=== PATIENT | female | born 1985 | race Caucasian/White ===

== ENCOUNTER 2021-05-24 16:08 | Emergency (ER) | payer BC, SELFPAY ==
--- NOTE | ~2021-05-24 | US_ITS ---
EXAMINATION: US RETROPERITONEAL LIMITED (RENAL ONLY) CLINICAL INFORMATION: Left flank pain. Dysuria. UTI/pyelonephritis. COMPARISON: Ultrasound of abdomen June 24, 2016 TECHNIQUE: Grayscale ultrasound and color Doppler exam was used to examine the kidneys FINDINGS: RIGHT KIDNEY: 10.6 x 4.8 x 5.3 cm (SAG x AP x TRV). The kidney is normal in size, contour, and echogenicity. Renal cortical thickness is normal. No calculi or focal parenchymal lesions. No hydronephrosis. LEFT KIDNEY: 10.1 x 5.8 x 5.7 cm (SAG x AP x TRV). The kidney is normal in size, contour, and echogenicity. Renal cortical thickness is normal. No calculi or focal parenchymal lesions. No hydronephrosis. US/US renal BI IMPRESSION: Normal ultrasound of kidneys..
[2021-05-24 17:08] VITALS: BP 141/92; PULSE 81; RESP 16; TEMP 36.6; O2SAT 97; BMI 23.1
--- NOTE | 2021-05-24 17:08 | ED.GENADULT ---
HPI - General Adult General Chief complaint: Urogenital-Female Stated complaint: ?Kidney infection Time Seen by Provider: 05/24/21 17:07 Source: patient Mode of arrival: ambulatory Limitations: no limitations History of Present Illness HPI narrative: 35 y/o female with history of recurrent UTIs, history of pyelonephritis x3 requiring IV antibiotics who presents to the ER wtih ongoing urinary symptoms after she completed 1 week of Macrobid for a E. coli UTI. Abx were prescribed by her PCP. Given her symptoms of dysuria, urinary frequency and left flank pain her PCP told her to come to the ER for blood work and a kidney ultrasound. She had a fever 2 days ago, none today. NO N/V/D. complaint: UTI symptoms Onset (ago): day(s) (8) Location: back, abdomen and left Radiation: back Severity: moderate Severity scale (1-10): 5 Quality: aching Pain Consistency: constant Relieving factors: none Exacerbating factors: movement Associated symptoms: denies other symptoms Treatments prior to arrival: none Related Data Previous Rx's Medication Instructions Recorded cefuroxime axetil 250 mg PO BID 7 Days #14 tab 05/24/21 fluconazole [Diflucan] 150 mg PO DAILY #1 tab 05/24/21 phenazopyridine [Pyridium] 100 mg PO Q8H PRN #5 tab 05/24/21 Allergies Allergy/AdvReac Type Severity Reaction Status Date / Time ciprofloxacin [CIPROFLOXACIN] Allergy Unknown HIVES/THROAT Verified 05/24/21 17:11 CLOSES Review of Systems Review of Systems: Constitutional: No Fever, No Chills ENT/Mouth: No sore throat, No Rhinorrhea, No Swallowing Difficulty Cardiovascular: No Chest Pain, No SOB Respiratory: No Cough, No Sputum Gastrointestinal: No Nausea, No Vomiting, No Diarrhea, No abdominal Pain Genitourinary: + Dysuria, + Urinary Frequency, No Hematuria Musculoskeletal: No joint pain, No Myalgias Skin: No Skin Lesions, No rash Neuro: No Weakness, No Numbness, No Dizziness, No Headache Heme/Lymph: No Lymphadenopathy PMFSH Past Medical History Attestation statement: The following information was validated with the patient. Social History Social History Advance Directives: No Advance Directives Information Provided: Yes Patient : No Physical Exam Vital Signs: Vital Signs: Last Vital Signs Temp 97.8 F 05/24/21 17:08 Pulse 81 05/24/21 17:08 Resp 16 05/24/21 17:08 BP 141/92 H 05/24/21 17:08 Pulse Ox 97 05/24/21 17:08 Body Mass Index 23.1 Appearance: Alert. Oriented X3. No acute distress. Eyes: Pupils equal, round and reactive to light. ENT: Pharynx normal. Neck: Normal inspection. Neck supple. CVS: Normal heart rate and rhythm. Pulses normal. Respiratory: No respiratory distress. Breath sounds normal. Abdomen: Soft with suprapubic tenderness, mild CVA tenderness on the left. No rebound or guarding. Normal BS x4 Skin: Skin warm and dry. Normal skin color. Normal skin turgor. No rashes. Extremities: No lower extremity edema. Neuro: Oriented X 3. No motor deficit. No sensory deficit. Course Course Course Narrative: 35 y/o female with history of frequent UTIs and multiple episodes of pyelonephritis requiring IV antibiotics and admission x3 who presents with left flank pain, dysuria, and urinary frequnecy for 1+ week. She was dx with UTI and given Macrobid x1 week which she completed. Symptoms persist. Fever 2 days ago. No fever here. No N/V/D. PCP sent her in for blood work and kidney ultrasound. Will repeat UA, lab workup & get Renal U/S Reevaluation(s) Reevaluation #1: Renal U/S normal. No leukocytosis, normal renal function. UA is normal. She would like to continue a course of additional antibiotics until she can be reseen by her PCP. We disucssed referral to urology for ongoing urinary symptoms and frequent infections, she agrees. Will give course of ceftin and pyridium and refer to Urology. Stable for d/c home. Medical Decision Making Lab Data Result diagrams: 05/24/21 18:14 05/24/21 18:14 Labs: Lab Results 05/24/21 05/24/21 05/24/21 Range/Units 17:39 18:14 18:14 WBC 6.3 (4.8-10.8) X10*3/uL RBC 3.87 L (4.20-5.50) X10*6/uL Hgb 13.1 (12.0-16.0) g/dl Hct 39.4 (37-47) % MCV 101.8 H (80-98) fL MCH 33.9 H (27.0-33.0) pg MCHC 33.2 (31.0-35.0) g/dl RDW 12.6 (11.0-16.0) % Plt Count 272 (160-400) X10*3/uL MPV 9.4 (9.4-12.3) fL Immature Gran % (Auto) 0.2 (0.0-0.4) % Neut % (Auto) 44.2 L (45-73) % Lymph % (Auto) 45.3 H (20-40) % [place] % (Auto) 6.3 (2-11) % Eos % (Auto) 3.2 (0-4) % Baso % (Auto) 0.8 (0-2) % Lymph # (Auto) 2.9 (1.2-4.9) X10*3/uL [place] # (Auto) 0.4 (0.1-1.2) X10*3/uL Eos # (Auto) 0.2 (0.0-0.4) X10*3/uL Baso # (Auto) 0.1 (0.0-0.2) X10*3/uL Abs Immat Gran (auto) 0.01 (0.00-0.03) X10*3/uL Absolute Neuts (auto) 2.8 (2.0-8.3) X10*3/uL Absolute Nucleated RBC 0.000 (0.0-0.012) X10*3/uL Nucleated RBC % (auto) 0.0 (0.0-0.2) /100WBC Sodium 140 (135-145) mmol/L Potassium 3.7 (3.3-5.1) mmol/L Chloride 106 (96-108) mmol/L Carbon Dioxide 27 (22-29) mmol/L Anion Gap 11 L (12-20) BUN 5 L (9-16) mg/dL Creatinine 0.72 (0.5-1.4) mg/dL Estim Creat Clear Calc 104.0 Estimated GFR > 60 Random Glucose 88 (60-115) mg/dL Calcium 9.0 (8.4-10.2) mg/dL Magnesium (1.6-2.6) mg/dL Urine Color YELLOW Urine Appearance CLEAR Urine pH 8.0 (5.0-8.0) Ur Specific [place] 1.010 (1.005-1.025) Urine Protein NEG (NEG-TRACE) MG/DL Urine Glucose (UA) NEG (NEG) MG/DL Urine Ketones NEG (NEG) MG/DL Urine Blood NEG (NEG) Urine Nitrite NEG (NEG) Ur Leukocyte Esterase NEG (NEG) 05/24/21 Range/Units 18:14 WBC (4.8-10.8) X10*3/uL RBC (4.20-5.50) X10*6/uL Hgb (12.0-16.0) g/dl Hct (37-47) % MCV (80-98) fL MCH (27.0-33.0) pg MCHC (31.0-35.0) g/dl RDW (11.0-16.0) % Plt Count (160-400) X10*3/uL MPV (9.4-12.3) fL Immature Gran % (Auto) (0.0-0.4) % Neut % (Auto) (45-73) % Lymph % (Auto) (20-40) % [place] % (Auto) (2-11) % Eos % (Auto) (0-4) % Baso % (Auto) (0-2) % Lymph # (Auto) (1.2-4.9) X10*3/uL [place] # (Auto) (0.1-1.2) X10*3/uL Eos # (Auto) (0.0-0.4) X10*3/uL Baso # (Auto) (0.0-0.2) X10*3/uL Abs Immat Gran (auto) (0.00-0.03) X10*3/uL Absolute Neuts (auto) (2.0-8.3) X10*3/uL Absolute Nucleated RBC (0.0-0.012) X10*3/uL Nucleated RBC % (auto) (0.0-0.2) /100WBC Sodium (135-145) mmol/L Potassium (3.3-5.1) mmol/L Chloride (96-108) mmol/L Carbon Dioxide (22-29) mmol/L Anion Gap (12-20) BUN (9-16) mg/dL Creatinine (0.5-1.4) mg/dL Estim Creat Clear Calc Estimated GFR Random Glucose (60-115) mg/dL Calcium (8.4-10.2) mg/dL Magnesium 1.9 (1.6-2.6) mg/dL Urine Color Urine Appearance Urine pH (5.0-8.0) Ur Specific [place] (1.005-1.025) Urine Protein (NEG-TRACE) MG/DL Urine Glucose (UA) (NEG) MG/DL Urine Ketones (NEG) MG/DL Urine Blood (NEG) Urine Nitrite (NEG) Ur Leukocyte Esterase (NEG) Critical Care Time Critical Care Time Critical Care Time: No Discharge Plan Discharge Clinical Impression: Urinary tract infection Qualifiers: Urinary tract infection type: acute cystitis Hematuria presence: without hematuria Qualified Code(s): N30.00 - Acute cystitis without hematuria Patient Disposition: Home, Self-Care Instructions: Urinary Tract Infection in Women (ED) Additional Instructions: Your ultrasound of your kidneys was normal. Your blood work and urine tests were normal. Given your symptoms and recent infection, we will plan to treat you with another course of antibiotics, pyridium and refer your to Urology for further management. Prescriptions: New phenazopyridine [Pyridium] 100 mg tablet 100 mg PO Q8H PRN (Reason: pain) Qty: 5 RF: 0 fluconazole [Diflucan] 150 mg tablet 150 mg PO DAILY Qty: 1 RF: 0 cefuroxime axetil 250 mg tablet 250 mg PO BID 7 Days Qty: 14 RF: 0 Referrals: Bishnu Silvestre MD [Physician] - 2 days (recurrent UTIs, hx pyelo x3) Interventions: ED Discharge Assessment Last Done: 05/24/21 19:22 Discharge Date/Time: 05/24/21 19:22
[2021-05-24 18:21] LABS: MANUAL DIFF FLAG NO
[2021-05-24 18:24] LABS: Glucose Urine UA NEG (NEG); Leukocyte Esterase Urine NEG (NEG); Nitrite Urine NEG (NEG); Urine Blood NEG (NEG); Urine Ketones NEG (NEG); Urine Protein NEG (NEG-TRACE)
[2021-05-24 18:25] LABS: Basophils Absolute Auto 0.1 X10*3/uL (0.0-0.2); Basophils Percent Auto 0.8 % (0-2); Eosinophils Absolute Auto 0.2 X10*3/uL (0.0-0.4); Eosinophils Percent Auto 3.2 % (0-4); Hematocrit 39.4 % (37-47); Hemoglobin 13.1 g/dl (12.0-16.0); Imm Gran Abs Auto 0.01 X10*3/uL (0.00-0.03); Imm Gran Pct Auto 0.2 % (0.0-0.4); Lymphocytes Absolute Auto 2.9 X10*3/uL (1.2-4.9); Lymphocytes Percent Auto 45.3 % (20-40); Mean Corpuscular HGB Conc 33.2 g/dl (31.0-35.0); Mean Corpuscular Hemoglobin 33.9 pg (27.0-33.0); Mean Corpuscular Volume 101.8 fL (80-98); Mean Platelet Volume 9.4 fL (9.4-12.3); Monocytes Absolute Auto 0.4 X10*3/uL (0.1-1.2); Monocytes Percent Auto 6.3 % (2-11); Neutrophils Absolute Auto 2.8 X10*3/uL (2.0-8.3); Neutrophils Percent Auto 44.2 % (45-73); Platelet Count 272 X10*3/uL (160-400); Red Blood Count 3.87 X10*6/uL (4.20-5.50); Red Cell Distribution Width 12.6 % (11.0-16.0); White Blood Count 6.3 X10*3/uL (4.8-10.8)
[2021-05-24 18:26] LABS: Appearance Urine CLEAR; Color Urine YELLOW
[2021-05-24 18:48] LABS: Anion Gap 11 (12-20); Blood Urea Nitrogen 5 mg/dL (9-16); Carbon Dioxide 27 mmol/L (22-29); Chloride 106 mmol/L (96-108); Estimated Glomerular Filt Rate > 60; Glucose Random 88 mg/dL (60-115); Potassium 3.7 mmol/L (3.3-5.1); Sodium 140 mmol/L (135-145)
[2021-05-24 18:49] LABS: Magnesium 1.9 mg/dL (1.6-2.6)
== END 2021-05-24 19:22 | disposition home or self-care (01) ==
PROVIDERS: Physician Assistant; Emergency Provider Emergency Medicine; PCP Internal Medicine
DX: N30.00 Acute cystitis without hematuria (principal)
CPT/HCPCS: 36415; 76775; 80048; 81003; 83735; 85025; 99283; 99284

== ENCOUNTER 2021-11-16 12:04 | Outpatient (REF) | payer BC, OTHER, SELFPAY ==
--- NOTE | ~2021-11-16 | XR_ITS ---
EXAMINATION: XR CHEST CLINICAL INFORMATION: Viral infection COMPARISON: None TECHNIQUE: 2 views of the chest were obtained. FINDINGS: No significant abnormality is noted involving the heart, lungs, mediastinum, bony thorax or soft tissues. XR/XR chest 2V IMPRESSION: Unremarkable examination.
[2021-11-16 12:42] LABS: Binax Internal Control QC Valid; Binax Now Covid-19 Ag Negative (Negative)
== END 2021-11-16 12:05 | disposition home or self-care (01) ==
LOC: HO.HMGCX 12:04
PROVIDERS: PCP Internal Medicine; Visit Provider Physician Assistant Medical
DX: Z20.822 Contact with and (suspected) exposure to COVID-19 (principal); B34.9 Viral infection, unspecified
CPT/HCPCS: 71046

== ENCOUNTER 2022-11-14 14:47 | Emergency (ER) | payer BC, SELFPAY ==
[2022-11-14 15:11] VITALS: BP 155/91; PULSE 90; RESP 18; TEMP 36.6; O2SAT 96; BMI 21.2
--- NOTE | 2022-11-14 15:11 | ED.FEMALEGU ---
HPI - Female Genitourinary General Chief complaint: Urogenital-Female <KRISTOFER Randolph - Last Filed: 11/14/22 15:15> Stated complaint: not urinating. 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 Landeros catheter for prolapsed uterus and cystocele and difficulty in urination patient plan to get pessary and further surgery in future does complain of burning sensation when she urinates no frequency no flank pain no fever or chills <Marlo Huffman MD - Last Filed: 11/15/22 00:47> Related Data Home medications: Home Medications Medication Instructions Recorded Confirmed albuterol sulfate 90 mcg/actuation 0 mcg inhalation 11/16/21 aerosol inhaler Previous Rx's Medication Instructions Recorded cefuroxime axetil 250 mg tablet 250 mg PO BID 7 days #14 tabs 05/24/21 fluconazole 150 mg tablet 150 mg PO DAILY #1 tab 05/24/21 (Diflucan) phenazopyridine 100 mg tablet 100 mg PO Q8H PRN pain #5 tabs 05/24/21 (Pyridium) albuterol sulfate 2.5 mg/3 mL 2.5 mg (3 mL) inhalation Q4-6H PRN 11/16/21 (0.083 %) solution for nebulization shortness of breath or wheezing 1 week #75 mL albuterol sulfate 90 mcg/actuation 1 inh inhalation QID PRN shortness 11/16/21 aerosol inhaler of breath or wheezing #8.5 grams doxycycline hyclate 100 mg capsule 100 mg PO BID 10 days #20 caps 11/16/21 prednisone 10 mg tablet 40 mg PO DAILY 5 days #20 tabs 11/16/21 [id number]-[id number] 5 ml PO Q4-6H PRN flu symptoms 11/17/21 6.25 mg-5 mg-10 mg/5 mL oral syrup #118 mL <KRISTOFER Randolph - Last Filed: 11/14/22 15:15> Allergies/Adverse reactions: Allergies Allergy/AdvReac Type Severity Reaction Status Date / Time ciprofloxacin [CIPROFLOXACIN] Allergy Unknown HIVES/THROAT Verified 11/14/22 15:18 CLOSES gluten Allergy Unknown Verified 11/14/22 15:17 shellfish derived Allergy Unknown Verified 11/14/22 15:17 soy Allergy Unknown Verified 11/14/22 15:17 <KRISTOFER Randolph - Last Filed: 11/14/22 15:15> Review of Systems Review of Systems: Yes all other systems are reviewed and are negative <Marlo Huffman MD - Last Filed: 11/15/22 00:47> [facility] Social History Social History: Social History Patient Tobacco Use Status: Current everyday Tobacco user Advance Directives: No Advance Directives Information Provided: No <KRISTOFER Randolph - Last Filed: 11/14/22 15:15> Physical Exam Vital Signs: Vital Signs: Last Vital Signs Temp 98.1 F 11/14/22 19:08 Pulse 65 11/14/22 19:08 Resp 18 11/14/22 19:08 BP 138/70 11/14/22 19:08 Pulse Ox 99 11/14/22 19:08 O2 Del Method 11/14/22 19:08 BMI result Body Mass Index 21.2 <KRISTOFER Randolph - Last Filed: 11/14/22 15:15> Vital Signs: Last Vital Signs Temp 98.1 F 11/14/22 19:08 Pulse 65 11/14/22 19:08 Resp 18 11/14/22 19:08 BP 138/70 11/14/22 19:08 Pulse Ox 99 11/14/22 19:08 O2 Del Method 11/14/22 19:08 BMI result Body Mass Index 21.2 <Marlo Huffman MD - Last Filed: 11/15/22 00:47> Appearance: Alert. Oriented X3. No acute distress. ENT: Pharynx normal. Oral Mucosa moist Neck: Normal inspection. Neck supple. CVS: Normal heart rate and rhythm. Pulses normal. Respiratory: No respiratory distress. Equal air entry bilateral, no wheezing/rales/rhonchi Abdomen: Soft , mild suprapubic discomfort no rebound tenderness or guarding Bowel sounds are present, no CVA tenderness Skin: Skin warm and dry. Normal skin color. Normal skin turgor. Neuro: Oriented X 3. <Marlo Huffman MD - Last Filed: 11/15/22 00:47> Course Course Course Narrative: RME - 37 yo female with history of prolapsed uterus and prolapsed bladder with plan for surgery by Urogyn with [facility] presents to the ER for difficulty urinating. Sent in by [facility] to get a Landeros placed until she can be seen by them on Saturday for self-cathing teaching and a pessary. UA, bladder scan ordered. <KRISTOFER Randolph - Last Filed: 11/14/22 15:15> Medical Decision Making Medical Decision Making MDM Narrative: Are in place the Landeros catheter 12 L of urine drained patient feeling much better at this time UA is negative for UTI leg bag applied <Marlo Huffman MD - Last Filed: 11/15/22 00:47> Lab Data MDM Lab Attestation statement: I reviewed the patient's lab results. <Marlo Huffman MD - Last Filed: 11/15/22 00:47> Labs: Lab Results 11/14/22 11/14/22 Range/Units 17:06 21:27 Urine Color Yellow Yellow Urine Appearance Cloudy Clear Urine pH 6.5 6.0 (5.0-9.0) Ur Specific [place] <= 1.005 <= 1.005 (1.005-1.025) Urine Protein Negative Negative (Neg-Trace) mg/dL Urine Glucose (UA) Negative Negative (Negative) mg/dL Urine Ketones Negative Negative (Negative) mg/dL Urine Blood Negative Negative (Negative) Urine Nitrite Negative Negative (Negative) Ur Leukocyte Esterase Small (1+) H Negative (Negative) Urine RBC 0-2 (0-2) /HPF Urine WBC 11-20 H (0-5) /HPF Ur Squamous Epith Cells 11-20 (0-2) /HPF Urine Bacteria 1+ (None Seen) Hyaline Casts 0-2 (0-2) /LPF <KRISTOFER Randolph - Last Filed: 11/14/22 15:15> Lab Results 11/14/22 11/14/22 Range/Units 17:06 21:27 Urine Color Yellow Yellow Urine Appearance Cloudy Clear Urine pH 6.5 6.0 (5.0-9.0) Ur Specific [place] <= 1.005 <= 1.005 (1.005-1.025) Urine Protein Negative Negative (Neg-Trace) mg/dL Urine Glucose (UA) Negative Negative (Negative) mg/dL Urine Ketones Negative Negative (Negative) mg/dL Urine Blood Negative Negative (Negative) Urine Nitrite Negative Negative (Negative) Ur Leukocyte Esterase Small (1+) H Negative (Negative) Urine RBC 0-2 (0-2) /HPF Urine WBC 11-20 H (0-5) /HPF Ur Squamous Epith Cells 11-20 (0-2) /HPF Urine Bacteria 1+ (None Seen) Hyaline Casts 0-2 (0-2) /LPF <Marlo Huffman MD - Last Filed: 11/15/22 00:47> Discharge Plan Discharge Clinical Impression: Acute urinary retention, Uterine prolapse, Cystocele with prolapse <KRISTOFER Randolph - Last Filed: 11/14/22 15:15> Patient Disposition: Home, Self-Care <KRISTOFER Randolph - Last Filed: 11/14/22 15:15> Instructions: Uterine Prolapse (ED), Acute Urinary Retention in Women (ED) <KRISTOFER Randolph - Last Filed: 11/14/22 15:15> Additional Instructions: Landeros catheter care as advised Follow-up with your butter production supervisor/surgery as scheduled <KRISTOFER Randolph - Last Filed: 11/14/22 15:15> Prescriptions: No Action [id number]-[id number] 6.25-5-10 mg/5 mL syrup 5 ml PO Q4-6H PRN (Reason: flu symptoms) Qty: 118 0RF phenazopyridine [Pyridium] 100 mg tablet 100 mg PO Q8H PRN (Reason: pain) Qty: 5 0RF fluconazole [Diflucan] 150 mg tablet 150 mg PO DAILY Qty: 1 0RF cefuroxime axetil 250 mg tablet 250 mg PO BID 7 Days Qty: 14 0RF albuterol sulfate 90 mcg/actuation HFA aerosol inhaler 0 mcg inhalation prednisone 10 mg tablet 40 mg PO DAILY 5 Days Qty: 20 0RF doxycycline hyclate 100 mg capsule 100 mg PO BID 10 Days Qty: 20 0RF albuterol sulfate 2.5 mg /3 mL (0.083 %) solution for nebulization 2.5 mg inhalation Q4-6H PRN (Reason: shortness of breath or wheezing) 7 Days Qty: 75 0RF albuterol sulfate 90 mcg/actuation HFA aerosol inhaler 1 inh inhalation QID PRN (Reason: shortness of breath or wheezing) Qty: 8.5 0RF <KRISTOFER Randolph - Last Filed: 11/14/22 15:15> Stand Alone Forms: Work/School Release <KRISTOFER Randolph - Last Filed: 11/14/22 15:15> Interventions: ED Discharge Assessment Last Done: 11/14/22 22:29 <KRISTOFER Randolph - Last Filed: 11/14/22 15:15> Discharge Date/Time: 11/14/22 22:30 <KRISTOFER Randolph - Last Filed: 11/14/22 15:15>
[2022-11-14 17:20] LABS: Appearance Urine Cloudy; Color Urine Yellow; Glucose Urine UA Negative (Negative); Leukocyte Esterase Urine Small (1+) (Negative); Nitrite Urine Negative (Negative); PH 6.5 (5.0-9.0); Specific Gravity - Urine <= 1.005 (1.005-1.025); UMIC TRIGGER UACC YES; Urine Blood Negative (Negative); Urine Ketones Negative (Negative); Urine Protein Negative (Neg-Trace)
[2022-11-14 17:25] LABS: Bacteria Urine 1+ (None Seen); Hyaline Casts Urine 0-2 /LPF (0-2); RBC Urine 0-2 /HPF (0-2); UACC Culture Trigger YES
[2022-11-14 19:08] VITALS: BP 138/70; PULSE 65; RESP 18; TEMP 36.7; O2SAT 99
[2022-11-14 21:40] LABS: Appearance Urine Clear; Color Urine Yellow; Glucose Urine UA Negative (Negative); Leukocyte Esterase Urine Negative (Negative); Nitrite Urine Negative (Negative); Specific Gravity - Urine <= 1.005 (1.005-1.025); Urine Blood Negative (Negative); Urine Ketones Negative (Negative); Urine Protein Negative (Neg-Trace)
== END 2022-11-14 22:30 | disposition home or self-care (01) ==
PROVIDERS: Physician Assistant; Emergency Provider Internal Medicine; PCP Internal Medicine
DX: N81.4 Uterovaginal prolapse, unspecified (principal); R33.9 Retention of urine, unspecified; Z79.899 Other long term (current) drug therapy
CPT/HCPCS: 51798; 81001; 81003; 87086; 99283; 99284

== ENCOUNTER 2022-11-17 14:03 | Emergency (ER) | payer BC, SELFPAY ==
--- NOTE | 2022-11-17 14:18 | ED.FEMALEGU ---
HPI - Female Genitourinary General Chief complaint: Abdominal Pain <KRISTOFER Link Last Filed: 11/17/22 14:25> Stated complaint: catheter isnt draining <KRISTOFER Link - Last Filed: 11/17/22 14:25> Time Seen by Provider: 11/17/22 14:30 <KRISTOFER Link - Last Filed: 11/17/22 14:25> Source: patient <KRISTOFER Mcconnell Last Filed: 11/17/22 16:27> Mode of arrival: ambulatory <KRISTOFER Mcconnell Last Filed: 11/17/22 16:27> Limitations: no limitations <KRISTOFER Mcconnell Last Filed: 11/17/22 16:27> History of Present Illness HPI Narrative: Patient is a 37 year old assigned female at with a history of chronic hayes catheter placement presenting to the emergency department today with redness and pain in her urethra. Patient states that over the last few days the area around where her catheter enters has been painful and she has white, chunky, discharge. Patient denies any dizziness, lightheadedness, abdominal pain, nausea, vomiting, fever, chills, blurry vision, double vision, loss of vision, chest pain, difficulty breathing, shortness of breath, back pain, night sweats, pain with urination, increased urinary frequency, increased urinary urgency, blood in her urine or stool, syncope or a near syncopal episode, recent trauma or falls, bowel incontinence, bladder incontinence, bowel retention, bladder retention, or any other complaints at this time. <KRISTOFER Mcconnell - Last Filed: 11/17/22 16:27> MD elicited complaint: vaginal discharge <KRISTOFER Mcconnell Last Filed: 11/17/22 16:27> Onset (ago): day(s) <KRISTOFER Mcconnell Last Filed: 11/17/22 16:27> Location of symptoms: external genitalia <KRISTOFER Mcconnell Last Filed: 11/17/22 16:27> Severity: mild <KRISTOFER Mcconnell Last Filed: 11/17/22 16:27> Female Urogenital Radiation: Non-Radiating <KRISTOFER Mcconnell Last Filed: 11/17/22 16:27> Severity scale (1-10): 1 <KRISTOFER Mcconnell - Last Filed: 11/17/22 16:27> Consistency: constant <KRISTOFER Mcconnell - Last Filed: 11/17/22 16:27> Vaginal discharge: white <KRISTOFER Mcconnell - Last Filed: 11/17/22 16:27> Vaginal bleeding: none <KRISTOFER Mcconnell - Last Filed: 11/17/22 16:27> Exacerbating factors: none <KRISTOFER Mcconnell - Last Filed: 11/17/22 16:27> Relieving factors: none <KRISTOFER Mcconnell - Last Filed: 11/17/22 16:27> Associated symptoms: denies other symptoms <KRISTOFER Mcconnell - Last Filed: 11/17/22 16:27> Treatment prior to arrival: none <KRISTOFER Mcconnell - Last Filed: 11/17/22 16:27> Related Data Home medications: Home Medications Medication Instructions Recorded Confirmed albuterol sulfate 90 mcg/actuation 0 mcg inhalation 11/16/21 aerosol inhaler Previous Rx's Medication Instructions Recorded cefuroxime axetil 250 mg tablet 250 mg PO BID 7 days #14 tabs 05/24/21 fluconazole 150 mg tablet 150 mg PO DAILY #1 tab 05/24/21 (Diflucan) phenazopyridine 100 mg tablet 100 mg PO Q8H PRN pain #5 tabs 05/24/21 (Pyridium) albuterol sulfate 2.5 mg/3 mL 2.5 mg (3 mL) inhalation Q4-6H PRN 11/16/21 (0.083 %) solution for nebulization shortness of breath or wheezing 1 week #75 mL albuterol sulfate 90 mcg/actuation 1 inh inhalation QID PRN shortness 11/16/21 aerosol inhaler of breath or wheezing #8.5 grams doxycycline hyclate 100 mg capsule 100 mg PO BID 10 days #20 caps 11/16/21 prednisone 10 mg tablet 40 mg PO DAILY 5 days #20 tabs 11/16/21 iczpfvbebegi-kkosjvjzldako-ihpfgug 5 ml PO Q4-6H PRN flu symptoms 11/17/21 6.25 mg-5 mg-10 mg/5 mL oral syrup #118 mL fluconazole 150 mg tablet 150 mg PO Q3D 2 doses #2 tabs 11/17/22 (Diflucan) <KRISTOFER Link Last Filed: 11/17/22 14:25> Allergies/Adverse reactions: Allergies Allergy/AdvReac Type Severity Reaction Status Date / Time ciprofloxacin [CIPROFLOXACIN] Allergy Unknown HIVES/THROAT Verified 11/14/22 15:18 CLOSES gluten Allergy Unknown Verified 11/14/22 15:17 shellfish derived Allergy Unknown Verified 11/14/22 15:17 soy Allergy Unknown Verified 11/14/22 15:17 <KRISTOFER Link Last Filed: 11/17/22 14:25> Review of Systems Constitutional: Constitutional: Reports no additional constitutional complaints, Denies chills, Denies fever(s) and Denies night sweats <KRISTOFER Mcconnell Last Filed: 11/17/22 16:27> Eyes: Eyes: Reports no additional eye complaints, Denies blurry vision, Denies change in vision, Denies diplopia, Denies eye discharge, Denies loss of vision and Denies eye pain <KRISTOFER Mcconnell Last Filed: 11/17/22 16:27> ENT: Denies dizziness <KRISTOFER Mcconnell Last Filed: 11/17/22 16:27> Cardiovascular: Cardiovascular: Reports no additional cardiovascular complaints, Denies chest pain, Denies lightheadedness, Denies Loss of Consciousness and Denies dyspnea <KRISTOFER Mcconnell Last Filed: 11/17/22 16:27> Respiratory: Respiratory: Reports no additional respiratory complaints and Denies dyspnea <KRISTOFER Mcconnell Last Filed: 11/17/22 16:27> Gastrointestinal: Gastrointestinal: Reports no additional gastrointestinal complaints, Denies abdominal pain, Denies melena, Denies hematochezia, Denies change in bowel habits and Denies change in stool character <KRISTOFER Mcconnell Last Filed: 11/17/22 16:27> Genitourinary: Genitourinary: Denies hematuria, Denies urinary frequency, Denies dysuria, Denies urinary incontinence, Denies urinary hesitancy, Denies urinary urgency and Reports vaginal discharge <KRISTOFER Mcconnell Last Filed: 11/17/22 16:27> Musculoskeletal: Musculoskeletal: Reports no additional musculoskeletal complaints, Denies numbness and Denies tingling <KRISTOFER Mcconnell - Last Filed: 11/17/22 16:27> Neurologic: Denies dizziness, Denies loss of vision, Denies numbness and Denies tingling <KRISTOFER Mcconnell - Last Filed: 11/17/22 16:27> Psychiatric: Psychiatric: Reports no additional psychiatric complaints <KRISTOFER Mcconnell - Last Filed: 11/17/22 16:27> Endocrine: Endocrine: Reports no additional endocrine complaints <KRISTOFER Mcconnell - Last Filed: 11/17/22 16:27> Hematologic/Lymphatic: Hematologic/Lymphatic: Reports no additional hematologic/lymphatic complaints <KRISTOFER Mcconnell - Last Filed: 11/17/22 16:27> Allergic/Immunologic: Allergic/Immunologic: Reports no additional allergic/immunologic complaints <KRISTOFER Mcconnell - Last Filed: 11/17/22 16:27> PMFSH Past Medical History Attestation statement: The following information was validated with the patient. <KRISTOFRE Mcconnell - Last Filed: 11/17/22 16:27> Source: old records reviewed and nursing notes reviewed <KRISTOFER Mcconnell - Last Filed: 11/17/22 16:27> Social History Social History: Social History Patient Tobacco Use Status: Current everyday Tobacco user Advance Directives: No Advance Directives Information Provided: Yes <KRISTOFER Link - Last Filed: 11/17/22 14:25> Physical Exam Vital Signs: Vital Signs: Last Vital Signs Temp 97.1 F 11/17/22 14:21 Pulse 90 11/17/22 14:21 Resp 18 11/17/22 14:21 BP 140/79 H 11/17/22 14:21 Pulse Ox 97 11/17/22 14:21 O2 Del Method 11/17/22 14:21 BMI result Body Mass Index 21.6 <KRISTOFER Link - Last Filed: 11/17/22 14:25> Vital Signs: Last Vital Signs Temp 97.1 F 11/17/22 14:21 Pulse 90 11/17/22 14:21 Resp 18 11/17/22 14:21 BP 140/79 H 11/17/22 14:21 Pulse Ox 97 11/17/22 14:21 O2 Del Method 11/17/22 14:21 BMI result Body Mass Index 21.6 <KRISTOFER Mcconnell - Last Filed: 11/17/22 16:27> Const: General: cooperative, no acute distress, alert and awake <KRISTOFER Mcconnell - Last Filed: 11/17/22 16:27> Nutritional Appearance: well nourished <KRISTOFER Mcconnell - Last Filed: 11/17/22 16:27> Orientation/consciousness: patient oriented x3 <KRISTOFER Mcconnell - Last Filed: 11/17/22 16:27> Limitations: no limitations <KRISTOFER Mcconnell - Last Filed: 11/17/22 16:27> HEENT: Head: Yes normal to inspection and Yes atraumatic <KRISTOFER Mcconnell - Last Filed: 11/17/22 16:27> Ears: hearing grossly normal bilaterally and external ears normal <Chelita Bone PA - Last Filed: 11/17/22 16:27> General nose exam: Normal external nose present, no nasal discharge noted and no epistaxis <KRISTOFER Mcconnell - Last Filed: 11/17/22 16:27> Face and sinus: Yes normal facial exam, No abrasion and No laceration <KRISTOFER Mcconnell - Last Filed: 11/17/22 16:27> Mouth: Normal oral and palatal mucosa present, no drooling and no muffled voice <KRISTOFER Mcconnell - Last Filed: 11/17/22 16:27> Eyes: General: appearance normal, both eyes and all related structures <KRISOTFER Mcconnell - Last Filed: 11/17/22 16:27> Periorbital: periorbital findings normal <KRISTOFER Mcconnell - Last Filed: 11/17/22 16:27> Eyelids: Yes eyelids normal <Chelita Bone PA - Last Filed: 11/17/22 16:27> Conjunctivae: conjunctivae normal <KRISTOFER Mcconnell - Last Filed: 11/17/22 16:27> Pupils: Equal, round and reactive pupils present <KRISTOFER Mcconnell - Last Filed: 11/17/22 16:27> EOM: EOMs intact bilaterally <Chelita Bone PA - Last Filed: 11/17/22 16:27> Neck: Neck: Yes normal visual inspection, Yes full ROM and Yes no lymphadenopathy <Chelita Bone PA - Last Filed: 11/17/22 16:27> Chest: Chest palpation & inspection: normal inspection of the chest <Chelita Bone PA - Last Filed: 11/17/22 16:27> Resp: Effort & Inspection: normal respiratory effort and able to speak in complete sentences <Chelita Bone PA - Last Filed: 11/17/22 16:27> Auscultation: clear to auscultation bilaterally <Chelita Bone PA - Last Filed: 11/17/22 16:27> Cardio: Rate: regular rate <Chelita Bone PA - Last Filed: 11/17/22 16:27> Rhythm: regular rhythm <Chelita Bone PA - Last Filed: 11/17/22 16:27> GI: Inspection: Yes normal to inspection <Chelita Bone PA - Last Filed: 11/17/22 16:27> Palpation (GI): Soft to palpation, not firm, nontender and no guarding <Chelita Bone PA - Last Filed: 11/17/22 16:27> : Other: hayes catheter in place - actively draining. Redness and white discharge present in the external genitalia <Chelita Bone PA - Last Filed: 11/17/22 16:27> Neuro: General: patient oriented x3 and moves all extremities <Chelita Bone PA - Last Filed: 11/17/22 16:27> Cranial nerves: Yes Equal, round and reactive pupils present <Chelita Bone PA - Last Filed: 11/17/22 16:27> Cognition (Neuro): normal cognition <Chelita Bone PA - Last Filed: 11/17/22 16:27> Motor exam (neuro): 5/5 motor strength present throughout <Chelita Bone PA - Last Filed: 11/17/22 16:27> Sensory Exam: Normal double simultaneous stimulation for sensation <Chelita Kincaidton PA - Last Filed: 11/17/22 16:27> Coordination: gtrgac-on-njon test normal <KRISTOFER Mcconnell - Last Filed: 11/17/22 16:27> Extrem: General: Yes normal to inspection, Yes full ROM and Yes capillary refill normal <KRISTOFER Mcconnell - Last Filed: 11/17/22 16:27> Psych: Appearance: grossly normal <KRISTOFER Mcconnell - Last Filed: 11/17/22 16:27> Mental Status: mental status grossly normal <KRISTOFER Mcconnell - Last Filed: 11/17/22 16:27> Affect: normal affect <KRISTOFER Mcconnell - Last Filed: 11/17/22 16:27> Attitude: cooperative <KRISTOFER Mcconnell - Last Filed: 11/17/22 16:27> Thought process: Normal thought process present <KRISTOFER Mcconnell Last Filed: 11/17/22 16:27> Thought content: Normal thought content present <KRISTOFER Mcconnell - Last Filed: 11/17/22 16:27> Insight: Good insight present (Psych) <KRISTOFER Mcconnell - Last Filed: 11/17/22 16:27> Course Course Course Narrative: RME--37-year-old female with a past medical history of prolapsed uterus and cystocele with indwelling Hayes catheter presenting to the ED complaining that hayes catheter pain and discharge x this AM. Reports pain at catheter site, R flank and lower abdomen. Reports decreased output from catheter Abd soft with epigastric, suprapubic and R CVAT. Labs, UA, Bladder scan ordered <KRISTOFER Link - Last Filed: 11/17/22 14:25> Medical Decision Making Medical Decision Making MDM Narrative: Patient is a 37 year old assigned female at with a history of chronic hayes catheter use presenting to the emergency department today with redness and pain of the external vaginal tissue surrounding the catheter. Patient's physical exam showed erythematous external vaginal tissue and white discharge consistent with a yeast infection. Patient's blood work was unremarkable. Patient's urine showed no acute process. I explained my physical exam findings as well as all test results to the patient. I answered all questions asked by the patient. I stressed the importance of the patient taking her medication as prescribed. I stressed the importance of the patient following up with her primary care provider and her urologist. I stressed the importance of the patient returning to the emergency department immediately if her symptoms were to worsen or if she were to develop any dizziness, shortness of breath, difficulty breathing, chest pain, blurry vision, loss of vision, nausea, vomiting, abdominal pain, fever, chills, back pain, or any other complaints. Patient verbalized agreement and understanding with this treatment plan and discharge]. <KRISTOFER Mcconnell - Last Filed: 11/17/22 16:27> Differential Diagnosis Differential Diagnoses: The differential diagnosis associated with the presentation includes <KRISTOFER Mcconnell - Last Filed: 11/17/22 16:27> yest infection <KRISTOFER Mcconnell - Last Filed: 11/17/22 16:27> Lab Data MDM Lab Attestation statement: I reviewed the patient's lab results. <KRISTOFER Mcconnell - Last Filed: 11/17/22 16:27> Result Diagrams: 11/17/22 14:31 11/17/22 14:31 <KRISTOFER Link - Last Filed: 11/17/22 14:25> Labs: Lab Results 11/17/22 11/17/22 11/17/22 Range/Units 14:31 14:31 14:44 WBC 6.3 (4.8-10.8) X10*3/uL RBC 3.96 L (4.20-5.50) X10*6/uL Hgb 13.5 (12.0-16.0) g/dl Hct 39.8 (37.0-47.0) % MCV 100.5 H (80.0-98.0) fL MCH 34.1 H (27.0-33.0) pg MCHC 33.9 (31.0-35.0) g/dl RDW 12.0 (11.0-16.0) % Plt Count 279 (160-400) X10*3/uL MPV 9.4 (9.4-12.3) fL Immature Gran % (Auto) 0.2 (0.0-0.4) % Neut % (Auto) 57.1 (45-73) % Lymph % (Auto) 32.9 (20-40) % [place] % (Auto) 6.1 (2-11) % Eos % (Auto) 2.7 (0-4) % Baso % (Auto) 1.0 (0-2) % Lymph # (Auto) 2.1 (1.2-4.9) X10*3/uL [place] # (Auto) 0.4 (0.1-1.2) X10*3/uL Eos # (Auto) 0.2 (0.0-0.4) X10*3/uL Baso # (Auto) 0.1 (0.0-0.2) X10*3/uL Abs Immat Gran (auto) 0.01 (0.00-0.03) X10*3/uL Absolute Neuts (auto) 3.6 (2.0-8.3) x10*3/uL Absolute Nucleated RBC 0.000 (0.0-0.012) X10*3/uL Nucleated RBC % (auto) 0.0 (0.0-0.2) /100WBC Sodium 140 (135-145) mmol/L Potassium 4.0 (3.3-5.1) mmol/L Chloride 108 (96-108) mmol/L Carbon Dioxide 22 (22-29) mmol/L Anion Gap 14 (12-20) BUN 8 L (9-16) mg/dL Creatinine 0.73 (0.5-1.4) mg/dL Estim Creat Clear Calc 100.6 Estimated GFR > 60 Random Glucose 112 (60-115) mg/dL Calcium 8.9 (8.4-10.2) mg/dL Magnesium 1.6 (1.6-2.6) mg/dL Total Bilirubin 1.3 H (0.0-1.0) mg/dL Direct Bilirubin 0.4 (0.0-0.5) mg/dL AST 16 (5-31) U/L ALT 12 (0-31) U/L Alkaline Phosphatase 40 (39-117) U/L Total Protein 6.6 (6.5-8.0) g/dL Albumin 3.9 (3.5-5.0) g/dL Urine Color Yellow Urine Appearance Clear Urine pH 6.0 (5.0-9.0) Ur Specific [place] 1.010 (1.005-1.025) Urine Protein Negative (Neg-Trace) mg/dL Urine Glucose (UA) Negative (Negative) mg/dL Urine Ketones Negative (Negative) mg/dL Urine Blood Trace H (Negative) Urine Nitrite Negative (Negative) Ur Leukocyte Esterase Negative (Negative) Urine RBC 0-2 (0-2) /HPF Urine WBC 0-5 (0-5) /HPF Ur Squamous Epith Cells 0-2 (0-2) /HPF Urine Bacteria None Seen (None Seen) Hyaline Casts 0-2 (0-2) /LPF <KRISTOFER Link - Last Filed: 11/17/22 14:25> Lab Results 11/17/22 11/17/22 11/17/22 Range/Units 14:31 14:31 14:44 WBC 6.3 (4.8-10.8) X10*3/uL RBC 3.96 L (4.20-5.50) X10*6/uL Hgb 13.5 (12.0-16.0) g/dl Hct 39.8 (37.0-47.0) % MCV 100.5 H (80.0-98.0) fL MCH 34.1 H (27.0-33.0) pg MCHC 33.9 (31.0-35.0) g/dl RDW 12.0 (11.0-16.0) % Plt Count 279 (160-400) X10*3/uL MPV 9.4 (9.4-12.3) fL Immature Gran % (Auto) 0.2 (0.0-0.4) % Neut % (Auto) 57.1 (45-73) % Lymph % (Auto) 32.9 (20-40) % [place] % (Auto) 6.1 (2-11) % Eos % (Auto) 2.7 (0-4) % Baso % (Auto) 1.0 (0-2) % Lymph # (Auto) 2.1 (1.2-4.9) X10*3/uL [place] # (Auto) 0.4 (0.1-1.2) X10*3/uL Eos # (Auto) 0.2 (0.0-0.4) X10*3/uL Baso # (Auto) 0.1 (0.0-0.2) X10*3/uL Abs Immat Gran (auto) 0.01 (0.00-0.03) X10*3/uL Absolute Neuts (auto) 3.6 (2.0-8.3) x10*3/uL Absolute Nucleated RBC 0.000 (0.0-0.012) X10*3/uL Nucleated RBC % (auto) 0.0 (0.0-0.2) /100WBC Sodium 140 (135-145) mmol/L Potassium 4.0 (3.3-5.1) mmol/L Chloride 108 (96-108) mmol/L Carbon Dioxide 22 (22-29) mmol/L Anion Gap 14 (12-20) BUN 8 L (9-16) mg/dL Creatinine 0.73 (0.5-1.4) mg/dL Estim Creat Clear Calc 100.6 Estimated GFR > 60 Random Glucose 112 (60-115) mg/dL Calcium 8.9 (8.4-10.2) mg/dL Magnesium 1.6 (1.6-2.6) mg/dL Total Bilirubin 1.3 H (0.0-1.0) mg/dL Direct Bilirubin 0.4 (0.0-0.5) mg/dL AST 16 (5-31) U/L ALT 12 (0-31) U/L Alkaline Phosphatase 40 (39-117) U/L Total Protein 6.6 (6.5-8.0) g/dL Albumin 3.9 (3.5-5.0) g/dL Urine Color Yellow Urine Appearance Clear Urine pH 6.0 (5.0-9.0) Ur Specific [place] 1.010 (1.005-1.025) Urine Protein Negative (Neg-Trace) mg/dL Urine Glucose (UA) Negative (Negative) mg/dL Urine Ketones Negative (Negative) mg/dL Urine Blood Trace H (Negative) Urine Nitrite Negative (Negative) Ur Leukocyte Esterase Negative (Negative) Urine RBC 0-2 (0-2) /HPF Urine WBC 0-5 (0-5) /HPF Ur Squamous Epith Cells 0-2 (0-2) /HPF Urine Bacteria None Seen (None Seen) Hyaline Casts 0-2 (0-2) /LPF <KRISTOFER Mcconnell - Last Filed: 11/17/22 16:27> Discharge Plan Discharge Clinical Impression: Yeast infection <KRISTOFER Link - Last Filed: 11/17/22 14:25> Patient Disposition: Home, Self-Care <KRISTOFER Link - Last Filed: 11/17/22 14:25> Instructions: Yeast Infection (ED) <KRISTOFER Link - Last Filed: 11/17/22 14:25> Additional Instructions: Follow up with your primary care provider. Return to the emergency department immediately if your symptoms worsen or if you develop any dizziness, shortness of breath, difficulty breathing, chest pain, blurry vision, loss of vision, nausea, vomiting, abdominal pain, fever, chills, back pain, or any other complaints. <KRISTOFER Link - Last Filed: 11/17/22 14:25> Prescriptions: New fluconazole [Diflucan] 150 mg tablet 150 mg PO Q3D Qty: 2 0RF No Action luewjywgxcil-tmzzclygn-jedaodz 6.25-5-10 mg/5 mL syrup 5 ml PO Q4-6H PRN (Reason: flu symptoms) Qty: 118 0RF phenazopyridine [Pyridium] 100 mg tablet 100 mg PO Q8H PRN (Reason: pain) Qty: 5 0RF fluconazole [Diflucan] 150 mg tablet 150 mg PO DAILY Qty: 1 0RF cefuroxime axetil 250 mg tablet 250 mg PO BID 7 Days Qty: 14 0RF albuterol sulfate 90 mcg/actuation HFA aerosol inhaler 0 mcg inhalation prednisone 10 mg tablet 40 mg PO DAILY 5 Days Qty: 20 0RF doxycycline hyclate 100 mg capsule 100 mg PO BID 10 Days Qty: 20 0RF albuterol sulfate 2.5 mg /3 mL (0.083 %) solution for nebulization 2.5 mg inhalation Q4-6H PRN (Reason: shortness of breath or wheezing) 7 Days Qty: 75 0RF albuterol sulfate 90 mcg/actuation HFA aerosol inhaler 1 inh inhalation QID PRN (Reason: shortness of breath or wheezing) Qty: 8.5 0RF <KRISTOFER Link - Last Filed: 11/17/22 14:25> Referrals: [facility] [place] Family Medicine [Provider Group] (Call to establish and follow up with a primary care provider. If you already have a primary care provider, please follow up with them. ) [facility] [Provider Group] (Call to establish and follow up with a primary care provider. If you already have a primary care provider, please follow up with them. ) [facility] [Provider Group] (Call to establish and follow up with a primary care provider. If you already have a primary care provider, please follow up with them. ) <KRISTOFER Link - Last Filed: 11/17/22 14:25> Interventions: ED Discharge Assessment Last Done: 11/17/22 15:50 <KRISTOFER Link - Last Filed: 11/17/22 14:25> Discharge Date/Time: 11/17/22 15:50 <KRISTOFER Link - Last Filed: 11/17/22 14:25> Print Language: Ivorian <KRISTOFER Link - Last Filed: 11/17/22 14:25>
[2022-11-17 14:21] VITALS: BP 140/79; PULSE 90; RESP 18; TEMP 36.2; O2SAT 97; BMI 21.6
[2022-11-17 14:36] LABS: MANUAL DIFF FLAG NO
[2022-11-17 14:37] LABS: Hematocrit 39.8 % (37.0-47.0); Hemoglobin 13.5 g/dl (12.0-16.0); Mean Corpuscular HGB Conc 33.9 g/dl (31.0-35.0); Mean Corpuscular Hemoglobin 34.1 pg (27.0-33.0); Mean Corpuscular Volume 100.5 fL (80.0-98.0); Red Blood Count 3.96 X10*6/uL (4.20-5.50); White Blood Count 6.3 X10*3/uL (4.8-10.8)
[2022-11-17 14:38] LABS: Basophils Absolute Auto 0.1 X10*3/uL (0.0-0.2); Eosinophils Absolute Auto 0.2 X10*3/uL (0.0-0.4); Eosinophils Percent Auto 2.7 % (0-4); Imm Gran Abs Auto 0.01 X10*3/uL (0.00-0.03); Imm Gran Pct Auto 0.2 % (0.0-0.4); Lymphocytes Absolute Auto 2.1 X10*3/uL (1.2-4.9); Lymphocytes Percent Auto 32.9 % (20-40); Mean Platelet Volume 9.4 fL (9.4-12.3); Monocytes Absolute Auto 0.4 X10*3/uL (0.1-1.2); Monocytes Percent Auto 6.1 % (2-11); Neutrophils Absolute Auto 3.6 x10*3/uL (2.0-8.3); Neutrophils Percent Auto 57.1 % (45-73); Platelet Count 279 X10*3/uL (160-400)
[2022-11-17 14:53] LABS: Appearance Urine Clear; Color Urine Yellow; Glucose Urine UA Negative (Negative); Leukocyte Esterase Urine Negative (Negative); Nitrite Urine Negative (Negative); UMIC TRIGGER UACC YES; Urine Blood Trace (Negative); Urine Ketones Negative (Negative); Urine Protein Negative (Neg-Trace)
[2022-11-17 14:57] LABS: Bacteria Urine None Seen (None Seen); Hyaline Casts Urine 0-2 /LPF (0-2); RBC Urine 0-2 /HPF (0-2); Squamous Epithelial Cell Urine 0-2 /HPF (0-2); WBC Urine 0-5 /HPF (0-5)
[2022-11-17 15:11] LABS: Alanine Aminotransferase 12 U/L (0-31); Albumin Level 3.9 g/dL (3.5-5.0); Alkaline Phosphatase 40 U/L (39-117); Anion Gap 14 (12-20); Aspartate Amino Transferase 16 U/L (5-31); Bilirubin Direct 0.4 mg/dL (0.0-0.5); Bilirubin Total 1.3 mg/dL (0.0-1.0); Blood Urea Nitrogen 8 mg/dL (9-16); Calcium 8.9 mg/dL (8.4-10.2); Carbon Dioxide 22 mmol/L (22-29); Chloride 108 mmol/L (96-108); Creatinine Clr Calc Pharmacy 100.6; Estimated Glomerular Filt Rate > 60; Glucose Random 112 mg/dL (60-115); Magnesium 1.6 mg/dL (1.6-2.6); Sodium 140 mmol/L (135-145); Total Protein 6.6 g/dL (6.5-8.0)
== END 2022-11-17 15:50 | disposition home or self-care (01) ==
PROVIDERS: Physician Assistant; Emergency Provider Emergency Medicine
DX: B37.31 Acute candidiasis of vulva and vagina (principal); R10.2 Pelvic and perineal pain; Z96.0 Presence of urogenital implants
CPT/HCPCS: 36415; 51798; 80048; 80076; 81001; 83735; 85025; 99283; 99284

== ENCOUNTER 2022-11-25 13:01 | Emergency (ER) | payer BC, SELFPAY ==
[2022-11-25 13:04] VITALS: BP 134/86; PULSE 96; RESP 18; TEMP 36.6; O2SAT 98; BMI 20.8
--- NOTE | 2022-11-25 13:04 | ED.FEMALEGU ---
HPI - Female Genitourinary General Chief complaint: Urogenital-Female Stated complaint: uti Time Seen by Provider: 11/25/22 13:17 Source: patient Mode of arrival: ambulatory Limitations: no limitations History of Present Illness HPI Narrative: Patient is a 37-year-old female presents emergency department for evaluation of genitourinary complaints. Patient is reporting Urinary frequency x2 days, had an outpatient urinalysis obtained that day. Received a call from doctor office nurse today, was advised she had a UTI, but no provider available to prescribe antibiotics and advised to come to ED. Right flank pain and suprapubic pain Denies fevers, chills, nausea, vomiting. Review of patients E chart indicates Serratia Marcescens (50,000 - 99,000 cfu) sensitivity report not provided. States last prescribed Macrobid for UTI on 11/01/2022. Patient performing self catheterization twice over the past week Related Data Home Medications Medication Instructions Recorded Confirmed albuterol sulfate 90 mcg/actuation 0 mcg inhalation 11/16/21 aerosol inhaler Previous Rx's Medication Instructions Recorded cefuroxime axetil 250 mg tablet 250 mg PO BID 7 days #14 tabs 05/24/21 fluconazole 150 mg tablet 150 mg PO DAILY #1 tab 05/24/21 (Diflucan) phenazopyridine 100 mg tablet 100 mg PO Q8H PRN pain #5 tabs 05/24/21 (Pyridium) albuterol sulfate 2.5 mg/3 mL 2.5 mg (3 mL) inhalation Q4-6H PRN 11/16/21 (0.083 %) solution for nebulization shortness of breath or wheezing 1 week #75 mL albuterol sulfate 90 mcg/actuation 1 inh inhalation QID PRN shortness 11/16/21 aerosol inhaler of breath or wheezing #8.5 grams doxycycline hyclate 100 mg capsule 100 mg PO BID 10 days #20 caps 11/16/21 prednisone 10 mg tablet 40 mg PO DAILY 5 days #20 tabs 11/16/21 oyzjzmbturvx-tyurvnfveowku-whdiuxo 5 ml PO Q4-6H PRN flu symptoms 11/17/21 6.25 mg-5 mg-10 mg/5 mL oral syrup #118 mL fluconazole 150 mg tablet 150 mg PO Q3D 2 doses #2 tabs 11/17/22 (Diflucan) sulfamethoxazole 800 1 tab PO BID 14 days #28 tabs 11/25/22 mg-trimethoprim 160 mg tablet (Bactrim DS) Allergies Allergy/AdvReac Type Severity Reaction Status Date / Time ciprofloxacin [CIPROFLOXACIN] Allergy Unknown HIVES/THROAT Verified 11/25/22 13:11 CLOSES gluten Allergy Unknown Verified 11/25/22 13:11 levofloxacin [From Levaquin] Allergy Rash Verified 11/25/22 13:14 shellfish derived Allergy Unknown Verified 11/25/22 13:11 soy Allergy Unknown Verified 11/25/22 13:11 Review of Systems Review of Systems: Constitutional: No weight loss, fever, chills, weakness or fatigue. Skin: No rash or itching. Cardiovascular: No chest pain, chest pressure or chest discomfort. No palpitations or pedal edema. Respiratory: No shortness of breath, cough or sputum production. Gastrointestinal: No anorexia, nausea, vomiting or diarrhea. Positive abdominal pain. Positive right flank pain. Genitourinary: Positive burning micturition. Positive urinary frequency Musculoskeletal: No muscle pain, back pain, joint pain or stiffness. Psychiatric: No depression or anxiety. Yes all other systems are reviewed and are negative [facility] Past Medical History Attestation statement: The following information was validated with the patient. Source: old records reviewed Social History Social History Patient Tobacco Use Status: Current everyday Tobacco user Use of substances other than those prescribed or required for medical reasons: No Any prior treatment program specific to substance use: No Advance Directives: No Advance Directives Information Provided: No Patient : No Physical Exam Vital Signs: Vital Signs: Last Vital Signs Temp 97.9 F 11/25/22 13:04 Pulse 96 11/25/22 13:04 Resp 18 11/25/22 13:04 BP 134/86 11/25/22 13:04 Pulse Ox 98 11/25/22 13:04 O2 Del Method 11/25/22 13:04 BMI result Body Mass Index 20.8 Appearance: Alert.?Oriented to person, place and time. No acute distress.?Normal affect. Eyes: Pupils equal, round and reactive to light.? ENT: Pharynx normal.?? Neck: Normal inspection.? Neck supple.?? CVS: Heart sounds normal. Normal heart rate and rhythm.? Pulses normal.?? Respiratory: No respiratory distress.? Lung sounds clear to auscultation bilaterally?? Abdomen: Soft and non-tender. Positive right CVA tenderness. Normoactive bowel sounds. Skin: Skin warm and dry.? Normal skin color.? ? Extremities: No lower extremity edema.? Neuro: Moves all extremities spontaneously. Sensation intact bilaterally. No focal neuro deficits. Ambulates with normal steady gait. Course Reevaluation(s) Reevaluation #1: CBC reveals no leukocytosis. CMP overall unremarkable, no KEYANNA. Urinalysis revealing 1+ blood, moderate pyuria, squamous epithelial cells, and trace urine bacteria, at this time, findings consistent with either urogenital contamination or week urinary tract infection. I discussed these findings with patient. She feels strongly about initiating antibiotics at this time. At this time does not appear consistent with sepsis. Based on urine culture result that she has provided, and concern for possible pyelonephritis given right CVA tenderness will provide treatment with Bactrim DS twice daily for 14 days. Advised outpatient follow-up with her primary care doctor. All questions answered. She is stable for discharge. Time: 14:03 Medical Decision Making Medical Decision Making [facility] Narrative: Patient is a 37-year-old female with past medical history of prolapsed uterus and cystocele presenting to emergency department for evaluation of genitourinary symptoms, and positive urine culture as noted in HPI. Abdominal examination is benign, she does however have right CVA tenderness. No rebound tenderness, negative Rovsing sign, obturator sign, psoas sign, low suspicion for appendicitis. Overall she is well appearing, tolerating oral intake currently. Will obtain CBC, and BMP, repeat urinalysis. Differential Diagnosis Differential Diagnoses: The differential diagnosis associated with the presentation includes (Urinary tract infection, pyelonephritis, nephrolithiasis, ureterolithiasis, hydronephrosis, appendicitis) Lab Data [facility] Lab Attestation statement: I reviewed the patient's lab results. 11/25/22 13:24 11/25/22 13:24 Labs: Lab Results 11/25/22 11/25/22 11/25/22 Range/Units 13:24 13:24 13:24 WBC 6.4 (4.8-10.8) X10*3/uL RBC 4.18 L (4.20-5.50) X10*6/uL Hgb 13.9 (12.0-16.0) g/dl Hct 41.2 (37.0-47.0) % MCV 98.6 H (80.0-98.0) fL MCH 33.3 H (27.0-33.0) pg MCHC 33.7 (31.0-35.0) g/dl RDW 12.0 (11.0-16.0) % Plt Count 262 (160-400) X10*3/uL MPV 9.4 (9.4-12.3) fL Immature Gran % (Auto) 0.2 (0.0-0.4) % Neut % (Auto) 47.6 (45-73) % Lymph % (Auto) 41.4 H (20-40) % [place] % (Auto) 7.5 (2-11) % Eos % (Auto) 2.5 (0-4) % Baso % (Auto) 0.8 (0-2) % Lymph # (Auto) 2.7 (1.2-4.9) X10*3/uL [place] # (Auto) 0.5 (0.1-1.2) X10*3/uL Eos # (Auto) 0.2 (0.0-0.4) X10*3/uL Baso # (Auto) 0.1 (0.0-0.2) X10*3/uL Abs Immat Gran (auto) 0.01 (0.00-0.03) X10*3/uL Absolute Neuts (auto) 3.1 (2.0-8.3) x10*3/uL Absolute Nucleated RBC 0.000 (0.0-0.012) X10*3/uL Nucleated RBC % (auto) 0.0 (0.0-0.2) /100WBC Sodium 144 (135-145) mmol/L Potassium 4.0 (3.3-5.1) mmol/L Chloride 110 H (96-108) mmol/L Carbon Dioxide 23 (22-29) mmol/L Anion Gap 15 (12-20) BUN 6 L (9-16) mg/dL Creatinine 0.74 (0.5-1.4) mg/dL Estim Creat Clear Calc 97.2 Estimated GFR > 60 Random Glucose 87 (60-115) mg/dL Calcium 8.9 (8.4-10.2) mg/dL Total Bilirubin 1.3 H (0.0-1.0) mg/dL AST 14 (5-31) U/L ALT 9 (0-31) U/L Alkaline Phosphatase 44 (39-117) U/L Total Protein 6.9 (6.5-8.0) g/dL Albumin 4.3 (3.5-5.0) g/dL Urine Color Yellow Urine Appearance Clear Urine pH 7.0 (5.0-9.0) Ur Specific [place] <= 1.005 (1.005-1.025) Urine Protein Negative (Neg-Trace) mg/dL Urine Glucose (UA) Negative (Negative) mg/dL Urine Ketones Negative (Negative) mg/dL Urine Blood Small (1+) H (Negative) Urine Nitrite Negative (Negative) Ur Leukocyte Esterase Moderate (2+) H (Negative) Urine RBC 0-2 (0-2) /HPF Urine WBC 11-20 H (0-5) /HPF Ur Squamous Epith Cells 3-5 (0-2) /HPF Urine Bacteria Trace (None Seen) Hyaline Casts 0-2 (0-2) /LPF Urine Test (NEGATIVE) 11/25/22 Range/Units 13:24 WBC (4.8-10.8) X10*3/uL RBC (4.20-5.50) X10*6/uL Hgb (12.0-16.0) g/dl Hct (37.0-47.0) % MCV (80.0-98.0) fL MCH (27.0-33.0) pg MCHC (31.0-35.0) g/dl RDW (11.0-16.0) % Plt Count (160-400) X10*3/uL MPV (9.4-12.3) fL Immature Gran % (Auto) (0.0-0.4) % Neut % (Auto) (45-73) % Lymph % (Auto) (20-40) % [place] % (Auto) (2-11) % Eos % (Auto) (0-4) % Baso % (Auto) (0-2) % Lymph # (Auto) (1.2-4.9) X10*3/uL [place] # (Auto) (0.1-1.2) X10*3/uL Eos # (Auto) (0.0-0.4) X10*3/uL Baso # (Auto) (0.0-0.2) X10*3/uL Abs Immat Gran (auto) (0.00-0.03) X10*3/uL Absolute Neuts (auto) (2.0-8.3) x10*3/uL Absolute Nucleated RBC (0.0-0.012) X10*3/uL Nucleated RBC % (auto) (0.0-0.2) /100WBC Sodium (135-145) mmol/L Potassium (3.3-5.1) mmol/L Chloride (96-108) mmol/L Carbon Dioxide (22-29) mmol/L Anion Gap (12-20) BUN (9-16) mg/dL Creatinine (0.5-1.4) mg/dL Estim Creat Clear Calc Estimated GFR Random Glucose (60-115) mg/dL Calcium (8.4-10.2) mg/dL Total Bilirubin (0.0-1.0) mg/dL AST (5-31) U/L ALT (0-31) U/L Alkaline Phosphatase (39-117) U/L Total Protein (6.5-8.0) g/dL Albumin (3.5-5.0) g/dL Urine Color Urine Appearance Urine pH (5.0-9.0) Ur Specific [place] (1.005-1.025) Urine Protein (Neg-Trace) mg/dL Urine Glucose (UA) (Negative) mg/dL Urine Ketones (Negative) mg/dL Urine Blood (Negative) Urine Nitrite (Negative) Ur Leukocyte Esterase (Negative) Urine RBC (0-2) /HPF Urine WBC (0-5) /HPF Ur Squamous Epith Cells (0-2) /HPF Urine Bacteria (None Seen) Hyaline Casts (0-2) /LPF Urine Test NEGATIVE (NEGATIVE) Prescription Management I considered prescription management with: Antibiotic Discharge Plan Discharge Clinical Impression: Urinary tract infection Patient Disposition: Home, Self-Care Instructions: Urinary Tract Infection in Women (ED) Additional Instructions: Be sure to stay well hydrated, drink plenty of fluids. Maintain normal genital hygiene. Complete entire course of antibiotics as prescribed, and follow up with your primary care provider regarding further management. Return back to emergency department any new or worsening symptoms or concerns Prescriptions: New sulfamethoxazole-trimethoprim [Bactrim DS] 800-160 mg tablet 1 tab PO BID 14 Days Qty: 28 0RF No Action wiopeiqysovy-jurlnztfn-mzruzeb 6.25-5-10 mg/5 mL syrup 5 ml PO Q4-6H PRN (Reason: flu symptoms) Qty: 118 0RF phenazopyridine [Pyridium] 100 mg tablet 100 mg PO Q8H PRN (Reason: pain) Qty: 5 0RF fluconazole [Diflucan] 150 mg tablet 150 mg PO DAILY Qty: 1 0RF cefuroxime axetil 250 mg tablet 250 mg PO BID 7 Days Qty: 14 0RF fluconazole [Diflucan] 150 mg tablet 150 mg PO Q3D Qty: 2 0RF albuterol sulfate 90 mcg/actuation HFA aerosol inhaler 0 mcg inhalation prednisone 10 mg tablet 40 mg PO DAILY 5 Days Qty: 20 0RF doxycycline hyclate 100 mg capsule 100 mg PO BID 10 Days Qty: 20 0RF albuterol sulfate 2.5 mg /3 mL (0.083 %) solution for nebulization 2.5 mg inhalation Q4-6H PRN (Reason: shortness of breath or wheezing) 7 Days Qty: 75 0RF albuterol sulfate 90 mcg/actuation HFA aerosol inhaler 1 inh inhalation QID PRN (Reason: shortness of breath or wheezing) Qty: 8.5 0RF Referrals: Physician,Unknown J [Primary Care Provider] - Interventions: ED Discharge Assessment Last Done: 11/25/22 14:22 Discharge Date/Time: 11/25/22 14:23
[2022-11-25 13:30] LABS: Basophils Absolute Auto 0.1 X10*3/uL (0.0-0.2); Basophils Percent Auto 0.8 % (0-2); Eosinophils Absolute Auto 0.2 X10*3/uL (0.0-0.4); Eosinophils Percent Auto 2.5 % (0-4); Hematocrit 41.2 % (37.0-47.0); Hemoglobin 13.9 g/dl (12.0-16.0); Imm Gran Abs Auto 0.01 X10*3/uL (0.00-0.03); Imm Gran Pct Auto 0.2 % (0.0-0.4); Lymphocytes Absolute Auto 2.7 X10*3/uL (1.2-4.9); Lymphocytes Percent Auto 41.4 % (20-40); MANUAL DIFF FLAG NO; Mean Corpuscular HGB Conc 33.7 g/dl (31.0-35.0); Mean Corpuscular Hemoglobin 33.3 pg (27.0-33.0); Mean Corpuscular Volume 98.6 fL (80.0-98.0); Mean Platelet Volume 9.4 fL (9.4-12.3); Monocytes Absolute Auto 0.5 X10*3/uL (0.1-1.2); Monocytes Percent Auto 7.5 % (2-11); Neutrophils Absolute Auto 3.1 x10*3/uL (2.0-8.3); Neutrophils Percent Auto 47.6 % (45-73); Platelet Count 262 X10*3/uL (160-400); Red Blood Count 4.18 X10*6/uL (4.20-5.50); White Blood Count 6.4 X10*3/uL (4.8-10.8)
[2022-11-25 13:31] LABS: Appearance Urine Clear; Color Urine Yellow; Glucose Urine UA Negative (Negative); Leukocyte Esterase Urine Moderate (2+) (Negative); Nitrite Urine Negative (Negative); Specific Gravity - Urine <= 1.005 (1.005-1.025); UMIC TRIGGER UACC YES; Urine Blood Small (1+) (Negative); Urine Ketones Negative (Negative); Urine Protein Negative (Neg-Trace)
[2022-11-25 13:33] LABS: UPreg QC Valid YES; Urine Pregnancy NEGATIVE (NEGATIVE)
[2022-11-25 13:43] LABS: Bacteria Urine Trace (None Seen); Hyaline Casts Urine 0-2 /LPF (0-2); RBC Urine 0-2 /HPF (0-2); UACC Culture Trigger YES
[2022-11-25 13:45] LABS: Alanine Aminotransferase 9 U/L (0-31); Albumin Level 4.3 g/dL (3.5-5.0); Alkaline Phosphatase 44 U/L (39-117); Anion Gap 15 (12-20); Aspartate Amino Transferase 14 U/L (5-31); Bilirubin Total 1.3 mg/dL (0.0-1.0); Blood Urea Nitrogen 6 mg/dL (9-16); Calcium 8.9 mg/dL (8.4-10.2); Carbon Dioxide 23 mmol/L (22-29); Chloride 110 mmol/L (96-108); Creatinine Clr Calc Pharmacy 97.2; Estimated Glomerular Filt Rate > 60; Glucose Random 87 mg/dL (60-115); Sodium 144 mmol/L (135-145); Total Protein 6.9 g/dL (6.5-8.0)
== END 2022-11-25 14:23 | disposition home or self-care (01) ==
PROVIDERS: Nurse Practitioner Family; Emergency Provider Emergency Medicine
DX: N39.0 Urinary tract infection, site not specified (principal); F17.200 Nicotine dependence, unspecified, uncomplicated; Z71.6 Tobacco abuse counseling; Z79.899 Other long term (current) drug therapy
CPT/HCPCS: 36415; 80053; 81001; 81025; 85025; 87086; 87088; 87186; 99284

== ENCOUNTER 2022-12-27 13:24 | Emergency (ER) | payer BC, SELFPAY ==
[2022-12-27 13:51] VITALS: BP 147/83; PULSE 65; RESP 14; TEMP 36.2; O2SAT 100; BMI 22.2
--- NOTE | 2022-12-27 13:51 | ED.FEMALEGU ---
HPI - Female Genitourinary General Chief complaint: Urogenital-Female <Kristal Sparks CNP - Last Filed: 12/27/22 13:57> Stated complaint: unable to urinate after surgery <Kristal Sparks CNP - Last Filed: 12/27/22 13:57> Time Seen by Provider: 12/27/22 17:45 <Kristal Sparks CNP - Last Filed: 12/27/22 13:57> Source: patient <KRISTOFER Randolph - Last Filed: 12/27/22 18:57> Mode of arrival: ambulatory <KRISTOFER Randolph - Last Filed: 12/27/22 18:57> Limitations: no limitations <KRISTOFER Randolph - Last Filed: 12/27/22 18:57> History of Present Illness HPI Narrative: 37-year-old female that is postop day 3 from a partial hysterectomy, repair of a cystocele, rectocele and bladder sling at [facility]. She has been struggling on and off with urinary retention preoperatively and was previously self catheterizing and intermittently needed to Hayes catheter. She was discharged from the hospital without a Hayes catheter and has been able to pass only small amounts of urine every time she urinates. She reports every time she goes is only 75-100 cc. She reports suprapubic pain, distension, back pain. No fever or chills. No vomiting. She is constipated and has not had a BM since the surgery. She is taking wirp-jyg-okwispt laxatives. <KRISTOFER Randolph - Last Filed: 12/27/22 18:57> MD elicited complaint: genital swelling, difficulty urinating and other (Urinary retention) <KRISTOFER Randolph Last Filed: 12/27/22 18:57> Pertinent past history: hysterectomy <KRISTOFER Randolph Last Filed: 12/27/22 18:57> Onset (ago): day(s) (3) <KRISTOFER Randolph Last Filed: 12/27/22 18:57> Location of symptoms: suprapubic and low back <KRISTOFER Randolph Last Filed: 12/27/22 18:57> Severity: moderate <KRISTOFER Randolph - Last Filed: 12/27/22 18:57> Severity scale (1-10): 5 <KRISTOFER Randolph - Last Filed: 12/27/22 18:57> Quality of pain: stabbing and aching <KRISTOFER Randolph - Last Filed: 12/27/22 18:57> Consistency: intermittent <KRISTOFER Randolph - Last Filed: 12/27/22 18:57> Vaginal discharge: none <KRISTOFER Randolph - Last Filed: 12/27/22 18:57> Vaginal bleeding: scant <KRISTOFER Randolph - Last Filed: 12/27/22 18:57> Urinary symptoms: Difficulty Urinating <KRISTOFER Randolph - Last Filed: 12/27/22 18:57> Exacerbating factors: none <KRISTOFER Randolph - Last Filed: 12/27/22 18:57> Relieving factors: none <KRISTOFER Randolph - Last Filed: 12/27/22 18:57> Associated symptoms: abdominal pain and constipation <KRISTOFER Randolph - Last Filed: 12/27/22 18:57> Treatment prior to arrival: none <KRISTOFER Randolph - Last Filed: 12/27/22 18:57> Sexual activity: No <KRISTOFER Randolph - Last Filed: 12/27/22 18:57> Patient : No <KRISTOFER Randolph - Last Filed: 12/27/22 18:57> Related Data Home medications: Home Medications Medication Instructions Recorded Confirmed albuterol sulfate 90 mcg/actuation 0 mcg inhalation 11/16/21 aerosol inhaler Previous Rx's Medication Instructions Recorded cefuroxime axetil 250 mg tablet 250 mg PO BID 7 days #14 tabs 05/24/21 fluconazole 150 mg tablet 150 mg PO DAILY #1 tab 05/24/21 (Diflucan) phenazopyridine 100 mg tablet 100 mg PO Q8H PRN pain #5 tabs 05/24/21 (Pyridium) albuterol sulfate 2.5 mg/3 mL 2.5 mg (3 mL) inhalation Q4-6H PRN 11/16/21 (0.083 %) solution for nebulization shortness of breath or wheezing 1 week #75 mL albuterol sulfate 90 mcg/actuation 1 inh inhalation QID PRN shortness 11/16/21 aerosol inhaler of breath or wheezing #8.5 grams doxycycline hyclate 100 mg capsule 100 mg PO BID 10 days #20 caps 11/16/21 prednisone 10 mg tablet 40 mg PO DAILY 5 days #20 tabs 11/16/21 mxtoztwigsoi-tfovszqiturzc-tgexamu 5 ml PO Q4-6H PRN flu symptoms 11/17/21 6.25 mg-5 mg-10 mg/5 mL oral syrup #118 mL fluconazole 150 mg tablet 150 mg PO Q3D 2 doses #2 tabs 11/17/22 (Diflucan) sulfamethoxazole 800 1 tab PO BID 14 days #28 tabs 11/25/22 mg-trimethoprim 160 mg tablet (Bactrim DS) nitrofurantoin 100 mg PO Q12H 7 days #14 caps 12/27/22 monohydrate/macrocrystals 100 mg capsule (Macrobid) <Kristal Sparks CNP - Last Filed: 12/27/22 13:57> Allergies/Adverse reactions: Allergies Allergy/AdvReac Type Severity Reaction Status Date / Time ciprofloxacin [CIPROFLOXACIN] Allergy Unknown HIVES/THROAT Verified 11/25/22 13:11 CLOSES gluten Allergy Unknown Verified 11/25/22 13:11 levofloxacin [From Levaquin] Allergy Rash Verified 11/25/22 13:14 shellfish derived Allergy Unknown Verified 11/25/22 13:11 soy Allergy Unknown Verified 11/25/22 13:11 <Kristal Sparks CNP - Last Filed: 12/27/22 13:57> Review of Systems Review of Systems: Yes Unobtainable due to mental status <KRISTOFER Randolph - Last Filed: 12/27/22 18:57> [facility] Social History Social History: Social History Patient Tobacco Use Status: Current everyday Tobacco user Advance Directives: No Advance Directives Information Provided: No Patient : No <Kristal Sparks CNP - Last Filed: 12/27/22 13:57> Physical Exam Vital Signs: Vital Signs: Last Vital Signs Temp 98.1 F 12/27/22 18:23 Pulse 62 12/27/22 18:23 Resp 14 12/27/22 18:23 BP 139/85 12/27/22 18:23 Pulse Ox 100 12/27/22 18:23 O2 Del Method 12/27/22 18:23 BMI result Body Mass Index 22.2 <Kristal Kay PAULINO Sparks - Last Filed: 12/27/22 13:57> Vital Signs: Last Vital Signs Temp 98.1 F 12/27/22 18:23 Pulse 62 12/27/22 18:23 Resp 14 12/27/22 18:23 BP 139/85 12/27/22 18:23 Pulse Ox 100 12/27/22 18:23 O2 Del Method 12/27/22 18:23 BMI result Body Mass Index 22.2 <KRISTOFER Randolph - Last Filed: 12/27/22 18:57> Appearance: Alert. Oriented X3. No acute distress. Eyes: Pupils equal, round and reactive to light. ENT: Pharynx normal. Neck: Normal inspection. Neck supple. CVS: Normal heart rate and rhythm. Pulses normal. Respiratory: No respiratory distress. Breath sounds normal. Abdomen: Lower abdominal distension with suprapubic tenderness. Palpable bladder to the level of the umbilicus. Normoactive bowel sounds x4. : Labia majora bilaterally with ecchymosis no vaginal bleeding noted Skin: Skin warm and dry. Normal skin color. Normal skin turgor. No rashes. Extremities: No lower extremity edema. Neuro: Oriented X 3. Grossly normal, nonfocal <KRISTOFER Randolph - Last Filed: 12/27/22 18:57> Course Course Course Narrative: This is an RME: Additional HPI, ROS, PE not included below will be deferred to primary provider. Patient is a 37-year-old female who presents emergency department reporting inability to urinate after recent surgery; partial hysterectomy, cytocele, rectocele, bladder sling at [facility] 2. Hayes catheter removed 12/25/22. States she is going to the bathroom multiple times, nearly hourly, with minimal output. She has trialed self catheterization, but has been unsuccessful. She contacted her urologist today who recommended that she go to the emergency department to have Hayes catheter insertion, and then have an office follow-up. Plan: urinalysis, hayes catheter. <Kristal Sparks CNP - Last Filed: 12/27/22 13:57> Reevaluation(s) Reevaluation #1: Hayes catheter successfully placed. Bladder scanning showing greater than 999 cc. Clear yellow urine Will plan to discharge with Hayes catheter and follow-up with her urologist/conference specialist at [facility] on Saturday as scheduled. UA sent for analysis and culture. <KRISTOFER Randolph - Last Filed: 12/27/22 18:57> Medical Decision Making Differential Diagnosis Differential Diagnoses: The differential diagnosis associated with the presentation includes <KRISTOFER Randolph - Last Filed: 12/27/22 18:57> Urinary retention, urinary obstruction, UTI, bowel obstruction, constipation <KRISTOFER Randolph - Last Filed: 12/27/22 18:57> Lab Data MDM Lab Attestation statement: I reviewed the patient's lab results. <KRISTOFER Randolph - Last Filed: 12/27/22 18:57> Labs: Lab Results 12/27/22 Range/Units 18:22 Urine Color Dark Yellow Urine Appearance Clear Urine pH 7.0 (5.0-9.0) Ur Specific [place] 1.010 (1.005-1.025) Urine Protein Negative (Neg-Trace) mg/dL Urine Glucose (UA) Negative (Negative) mg/dL Urine Ketones Negative (Negative) mg/dL Urine Blood Negative (Negative) Urine Nitrite Positive H (Negative) Ur Leukocyte Esterase Negative (Negative) <Kristal Sparks CNP - Last Filed: 12/27/22 13:57> Lab Results 12/27/22 Range/Units 18:22 Urine Color Dark Yellow Urine Appearance Clear Urine pH 7.0 (5.0-9.0) Ur Specific [place] 1.010 (1.005-1.025) Urine Protein Negative (Neg-Trace) mg/dL Urine Glucose (UA) Negative (Negative) mg/dL Urine Ketones Negative (Negative) mg/dL Urine Blood Negative (Negative) Urine Nitrite Positive H (Negative) Ur Leukocyte Esterase Negative (Negative) <KRISTOFER Randolph - Last Filed: 12/27/22 18:57> Independent Historian Clinical information obtained from an independent historian. History obtained from or confirmed by: Spouse <KRISTOFER Randolph - Last Filed: 12/27/22 18:57> External Record Review External record reviewed: Outpatient record and Prior outpatient labs <KRISTOFRE Randolph - Last Filed: 12/27/22 18:57> Prescription Management I considered prescription management with: Pain Medication and Antibiotic <KRISTOFER Randolph - Last Filed: 12/27/22 18:57> UA + nitrites, will treat <KRISTOFER Randolph - Last Filed: 12/27/22 18:57> Core Measures AMI core measures followed: No <KRISTOFER Randolph - Last Filed: 12/27/22 18:57> Critical Care Time Critical Care Time Critical Care Time: No <KRISTOFER Randolph - Last Filed: 12/27/22 18:57> Discharge Plan Discharge Clinical Impression: Acute urinary retention <Kristal Sparks CNP - Last Filed: 12/27/22 13:57> Patient Disposition: Home, Self-Care <Kristal Sparks CNP - Last Filed: 12/27/22 13:57> Instructions: Hayes Catheter Placement and Care (ED), Acute Urinary Retention in Women (ED) <Kristal Sparks CNP - Last Filed: 12/27/22 13:57> Additional Instructions: You were retaining >1,500 mL in your bladder Your urine test showed possible infection - take the prescribed antibiotic as directed, complete the entire course and do no miss any doses Follow up with your doctor at [facility] on Saturday as scheduled Recommend drinking 1/2 bottle of mag citrate, if no BM in 1 hour, drink the other half Increase your miralax to 2 times per day Drink plenty of fluids Recommend over the counter Dulcolax suppositories daily as needed for constipation If you develop new or worsening symptoms call 911 or come back to the ER for further evaluation. <Kristal Sparks CNP - Last Filed: 12/27/22 13:57> Prescriptions: New nitrofurantoin monohyd/m-cryst [Macrobid] 100 mg capsule 100 mg PO Q12H 7 Days Qty: 14 0RF Rx Instructions: must administer with a meal/food No Action bdsflgahphpv-bpxxqerdd-wzecndp 6.25-5-10 mg/5 mL syrup 5 ml PO Q4-6H PRN (Reason: flu symptoms) Qty: 118 0RF phenazopyridine [Pyridium] 100 mg tablet 100 mg PO Q8H PRN (Reason: pain) Qty: 5 0RF fluconazole [Diflucan] 150 mg tablet 150 mg PO DAILY Qty: 1 0RF cefuroxime axetil 250 mg tablet 250 mg PO BID 7 Days Qty: 14 0RF fluconazole [Diflucan] 150 mg tablet 150 mg PO Q3D Qty: 2 0RF sulfamethoxazole-trimethoprim [Bactrim DS] 800-160 mg tablet 1 tab PO BID 14 Days Qty: 28 0RF albuterol sulfate 90 mcg/actuation HFA aerosol inhaler 0 mcg inhalation prednisone 10 mg tablet 40 mg PO DAILY 5 Days Qty: 20 0RF doxycycline hyclate 100 mg capsule 100 mg PO BID 10 Days Qty: 20 0RF albuterol sulfate 2.5 mg /3 mL (0.083 %) solution for nebulization 2.5 mg inhalation Q4-6H PRN (Reason: shortness of breath or wheezing) 7 Days Qty: 75 0RF albuterol sulfate 90 mcg/actuation HFA aerosol inhaler 1 inh inhalation QID PRN (Reason: shortness of breath or wheezing) Qty: 8.5 0RF <Kristal Sparks, [employer]ENTICE - Last Filed: 12/27/22 13:57>
[2022-12-27 18:23] VITALS: BP 139/85; PULSE 62; RESP 14; TEMP 36.7; O2SAT 100
[2022-12-27 18:36] LABS: Appearance Urine Clear; Color Urine Dark Yellow; Glucose Urine UA Negative (Negative); Leukocyte Esterase Urine Negative (Negative); Nitrite Urine Positive (Negative); UMIC TRIGGER UACC YES; Urine Blood Negative (Negative); Urine Ketones Negative (Negative); Urine Protein Negative (Neg-Trace)
[2022-12-27 18:54] LABS: Bacteria Urine None Seen (None Seen); Hyaline Casts Urine 0-2 /LPF (0-2); RBC Urine 0-2 /HPF (0-2); Squamous Epithelial Cell Urine 0-2 /HPF (0-2); UACC Culture Trigger YES; WBC Urine 0-5 /HPF (0-5)
[2022-12-27] MEDS: bisacodyL 10 MG SUPP.RECT PR (19:00)
== END 2022-12-27 19:43 | disposition home or self-care (01) ==
PROVIDERS: Nurse Practitioner Family; Emergency Provider Emergency Medicine Emergency Medical Services
DX: R33.9 Retention of urine, unspecified (principal); Z90.710 Acquired absence of both cervix and uterus; F17.200 Nicotine dependence, unspecified, uncomplicated
CPT/HCPCS: 51702; 81001; 87086; 99284

== ENCOUNTER 2023-01-08 12:46 | Emergency (ER) | payer BC, SELFPAY ==
--- NOTE | 2023-01-08 12:48 | ED.FEMALEGU ---
HPI - Female Genitourinary General Chief complaint: Urogenital-Female <Kristal Sparks CNP - Last Filed: 01/08/23 12:57> Stated complaint: Catheter issues <Kristal Sparks CNP - Last Filed: 01/08/23 12:57> Time Seen by Provider: 01/08/23 14:41 <Kristal Sparks CNP - Last Filed: 01/08/23 12:57> Source: patient <KRISTOFER Mcconnell - Last Filed: 01/08/23 17:23> Mode of arrival: ambulatory <KRISTOFER Mcconnell Last Filed: 01/08/23 17:23> Limitations: no limitations <KRISTOFER Mcconnell Last Filed: 01/08/23 17:23> History of Present Illness HPI Narrative: Patient is a 37 year old assigned female at with a history of urinary retention requiring a hayes catheter and recent hysterectomy presenting to the emergency department today with a possible urinary tract infection. Patient states that she is having intermittent bladder pain and noticed some sediment in her hayes bag. Patient states that her urologist informed her that if her urine was found to be infected today, she has to have her hayes catheter replaced. Patient denies any dizziness, lightheadedness, nausea, vomiting, fever, chills, blurry vision, double vision, loss of vision, chest pain, difficulty breathing, shortness of breath, back pain, night sweats, blood in her urine or stool, syncope or a near syncopal episode, recent trauma or falls, bowel incontinence, bowel retention, bladder retention, or any other complaints at this time. <KRISTOFER Mcconnell - Last Filed: 01/08/23 17:23> MD elicited complaint: UTI <KRISTOFER Mcconnell - Last Filed: 01/08/23 17:23> Vaginal discharge: none <KRISTOFER Mcconnell Last Filed: 01/08/23 17:23> Vaginal bleeding: none <KRISTOFER Mcconnell Last Filed: 01/08/23 17:23> Associated symptoms: denies other symptoms <KRISTOFER Mcconnell Last Filed: 01/08/23 17:23> Treatment prior to arrival: none <KRISTOFER Mcconnell Last Filed: 01/08/23 17:23> Related Data Home medications: Home Medications Medication Instructions Recorded Confirmed albuterol sulfate 90 mcg/actuation 0 mcg inhalation 11/16/21 aerosol inhaler Previous Rx's Medication Instructions Recorded cefuroxime axetil 250 mg tablet 250 mg PO BID 7 days #14 tabs 05/24/21 fluconazole 150 mg tablet 150 mg PO DAILY #1 tab 05/24/21 (Diflucan) phenazopyridine 100 mg tablet 100 mg PO Q8H PRN pain #5 tabs 05/24/21 (Pyridium) albuterol sulfate 2.5 mg/3 mL 2.5 mg (3 mL) inhalation Q4-6H PRN 11/16/21 (0.083 %) solution for nebulization shortness of breath or wheezing 1 week #75 mL albuterol sulfate 90 mcg/actuation 1 inh inhalation QID PRN shortness 11/16/21 aerosol inhaler of breath or wheezing #8.5 grams doxycycline hyclate 100 mg capsule 100 mg PO BID 10 days #20 caps 11/16/21 prednisone 10 mg tablet 40 mg PO DAILY 5 days #20 tabs 11/16/21 meswtmuqduat-zbqgbhbnktxxo-iclkaoo 5 ml PO Q4-6H PRN flu symptoms 11/17/21 6.25 mg-5 mg-10 mg/5 mL oral syrup #118 mL fluconazole 150 mg tablet 150 mg PO Q3D 2 doses #2 tabs 11/17/22 (Diflucan) sulfamethoxazole 800 1 tab PO BID 14 days #28 tabs 11/25/22 mg-trimethoprim 160 mg tablet (Bactrim DS) nitrofurantoin 100 mg PO Q12H 7 days #14 caps 12/27/22 monohydrate/macrocrystals 100 mg capsule (Macrobid) cephalexin 500 mg capsule 500 mg PO Q6H 7 days #28 caps 01/08/23 <Kristal Sparks CNP - Last Filed: 01/08/23 12:57> Allergies/Adverse reactions: Allergies Allergy/AdvReac Type Severity Reaction Status Date / Time ciprofloxacin [CIPROFLOXACIN] Allergy Unknown HIVES/THROAT Verified 11/25/22 13:11 CLOSES gluten Allergy Unknown Verified 11/25/22 13:11 levofloxacin [From Levaquin] Allergy Rash Verified 11/25/22 13:14 shellfish derived Allergy Unknown Verified 11/25/22 13:11 soy Allergy Unknown Verified 11/25/22 13:11 sulfamethoxazole Allergy Hives Verified 01/08/23 15:45 [From Bactrim] trimethoprim [From Bactrim] Allergy Hives Verified 01/08/23 15:45 <Kristal Sparks CNP - Last Filed: 01/08/23 12:57> Review of Systems Constitutional: Constitutional: Reports no additional constitutional complaints, Denies chills, Denies fever(s) and Denies night sweats <KRISTOFER Mcconnell - Last Filed: 01/08/23 17:23> Eyes: Eyes: Reports no additional eye complaints, Denies blurry vision, Denies change in vision, Denies diplopia, Denies eye discharge, Denies loss of vision and Denies eye pain <KRISTOFER Mcconnell - Last Filed: 01/08/23 17:23> ENT: Denies dizziness <KRISTOFER Mcconnell - Last Filed: 01/08/23 17:23> Cardiovascular: Cardiovascular: Reports no additional cardiovascular complaints, Denies chest pain, Denies lightheadedness, Denies Loss of Consciousness and Denies dyspnea <KRISTOFER Mcconnell - Last Filed: 01/08/23 17:23> Respiratory: Respiratory: Reports no additional respiratory complaints and Denies dyspnea <KRISTOFER Mcconnell - Last Filed: 01/08/23 17:23> Gastrointestinal: Gastrointestinal: Reports no additional gastrointestinal complaints, Denies abdominal pain, Denies melena, Denies hematochezia, Denies change in bowel habits and Denies change in stool character <KRISTOFER Mcconnell - Last Filed: 01/08/23 17:23> Genitourinary: Genitourinary: Denies hematuria <KRISTOFER Mcconnell - Last Filed: 01/08/23 17:23> Comments: hayes catheter in place <KRISTOFER Mcconnell - Last Filed: 01/08/23 17:23> Musculoskeletal: Musculoskeletal: Reports no additional musculoskeletal complaints, Denies numbness and Denies tingling <KRISTOFER Mcconnell - Last Filed: 01/08/23 17:23> Neurologic: Denies dizziness, Denies loss of vision, Denies numbness and Denies tingling <KRISTOFER Mcconnell - Last Filed: 01/08/23 17:23> Psychiatric: Psychiatric: Reports no additional psychiatric complaints <KRISTOFER Mcconnell - Last Filed: 01/08/23 17:23> Endocrine: Endocrine: Reports no additional endocrine complaints <KRISTOFER Mcconnell - Last Filed: 01/08/23 17:23> Hematologic/Lymphatic: Hematologic/Lymphatic: Reports no additional hematologic/lymphatic complaints <KRISTOFER Mcconnell - Last Filed: 01/08/23 17:23> Allergic/Immunologic: Allergic/Immunologic: Reports no additional allergic/immunologic complaints <KRISTOFER Mcconnell - Last Filed: 01/08/23 17:23> PMFSH Past Medical History Attestation statement: The following information was validated with the patient. <KRISTOFER Mcconnell - Last Filed: 01/08/23 17:23> Source: old records reviewed and nursing notes reviewed <KRISTOFER Mcconnell - Last Filed: 01/08/23 17:23> Social History Social History: Social History Patient Tobacco Use Status: Current everyday Tobacco user Smoked in Last 30 Days: No Use of substances other than those prescribed or required for medical reasons: No Any prior treatment program specific to substance use: No Advance Directives: No Advance Directives Information Provided: Yes Patient : No <Kristal Sparks CNP - Last Filed: 01/08/23 12:57> Physical Exam Vital Signs: Vital Signs: Last Vital Signs Temp 98.2 F 01/08/23 16:00 Pulse 72 01/08/23 16:00 Resp 16 01/08/23 16:00 BP 135/85 01/08/23 16:00 Pulse Ox 97 01/08/23 16:00 O2 Del Method 01/08/23 16:00 BMI result Body Mass Index 20.3 <Kristal Sparks CNP - Last Filed: 01/08/23 12:57> Vital Signs: Last Vital Signs Temp 98.2 F 01/08/23 16:00 Pulse 72 01/08/23 16:00 Resp 16 01/08/23 16:00 BP 135/85 01/08/23 16:00 Pulse Ox 97 01/08/23 16:00 O2 Del Method 01/08/23 16:00 BMI result Body Mass Index 20.3 <KRISTOFER Mcconnell - Last Filed: 01/08/23 17:23> Const: General: cooperative, no acute distress, alert and awake <KRISTOFER Mcconnell - Last Filed: 01/08/23 17:23> Nutritional Appearance: well nourished <KRISTOFER Mcconnell - Last Filed: 01/08/23 17:23> Orientation/consciousness: patient oriented x3 <KRISTOFER Mcconnell - Last Filed: 01/08/23 17:23> Limitations: no limitations <KRISTOFER Mcconnell - Last Filed: 01/08/23 17:23> HEENT: Head: Yes normal to inspection and Yes atraumatic <KRISTOFER Mcconnell - Last Filed: 01/08/23 17:23> Ears: hearing grossly normal bilaterally and external ears normal <KRISTOFER Mcconnell - Last Filed: 01/08/23 17:23> General nose exam: Normal external nose present, no nasal discharge noted and no epistaxis <Chelita Bone PA - Last Filed: 01/08/23 17:23> Face and sinus: Yes normal facial exam, No abrasion and No laceration <KRISTOFER Mcconnell - Last Filed: 01/08/23 17:23> Mouth: Normal oral and palatal mucosa present, no drooling and no muffled voice <KRISTOFER Mcconnell - Last Filed: 01/08/23 17:23> Eyes: General: appearance normal, both eyes and all related structures <KRISTOFER Mcconnell - Last Filed: 01/08/23 17:23> Periorbital: periorbital findings normal <KRISTOFER Mcconnell - Last Filed: 01/08/23 17:23> Eyelids: Yes eyelids normal <KRISTOFER Mcconnell - Last Filed: 01/08/23 17:23> Conjunctivae: conjunctivae normal <KRISTOFER Mcconnell - Last Filed: 01/08/23 17:23> Pupils: Equal, round and reactive pupils present <KRISTOFER Mcconnell - Last Filed: 01/08/23 17:23> EOM: EOMs intact bilaterally <Chelita Bone PA - Last Filed: 01/08/23 17:23> Neck: Neck: Yes normal visual inspection, Yes full ROM and Yes no lymphadenopathy <Chelita Bone PA - Last Filed: 01/08/23 17:23> Chest: Chest palpation & inspection: normal inspection of the chest <Chelita Bone PA - Last Filed: 01/08/23 17:23> Resp: Effort & Inspection: normal respiratory effort and able to speak in complete sentences <Chelita Bone PA - Last Filed: 01/08/23 17:23> GI: Inspection: Yes normal to inspection <Chelita Bone PA - Last Filed: 01/08/23 17:23> : Other: appropriately draining hayes cathter in place with yellow and semi-cloudy, urine present <Chelita Bone PA - Last Filed: 01/08/23 17:23> Neuro: General: patient oriented x3 and moves all extremities <Chelita Kincaidton PA - Last Filed: 01/08/23 17:23> Cranial nerves: Yes Equal, round and reactive pupils present <Chelita Bone PA - Last Filed: 01/08/23 17:23> Cognition (Neuro): normal cognition <Chelita Bone PA - Last Filed: 01/08/23 17:23> Motor exam (neuro): 5/5 motor strength present throughout <Chelita Bone PA - Last Filed: 01/08/23 17:23> Sensory Exam: Normal double simultaneous stimulation for sensation <Chelita Kincaidton PA - Last Filed: 01/08/23 17:23> Coordination: qcqdgq-[id number] test normal <Chelita Bone PA - Last Filed: 01/08/23 17:23> Extrem: General: Yes normal to inspection, Yes full ROM and Yes capillary refill normal <Chelita Kincaidton PA - Last Filed: 01/08/23 17:23> Psych: Appearance: grossly normal <Chelita Kincaidton PA - Last Filed: 01/08/23 17:23> Mental Status: mental status grossly normal <Cheilta Kincaidton PA - Last Filed: 01/08/23 17:23> Affect: normal affect <Chelita Kincaidton PA - Last Filed: 01/08/23 17:23> Attitude: cooperative <KRISTOFER Mcconnell - Last Filed: 01/08/23 17:23> Thought process: Normal thought process present <KRISTOFER Mcconnell - Last Filed: 01/08/23 17:23> Thought content: Normal thought content present <KRISTOFER Mcconnell - Last Filed: 01/08/23 17:23> Insight: Good insight present (Psych) <KRISTOFER Mcconnell - Last Filed: 01/08/23 17:23> Course Course Course Narrative: This is an RME: Additional HPI, ROS, PE not included below will be deferred to primary provider. Patient is a 37-year-old female who presents emergency department for genitourinary symptoms, he has underwent recent surgery; partial hysterectomy, cytocele, rectocele, bladder sling at [facility] 12/24/22. Was seen here 12/27/2022 for urinary retention had a Hayes catheter inserted, was evaluated by her urologist 12/31/2022 at which point the catheter was discontinued. It was reinserted 01/03/2023 as she was retaining was found to have a urinary tract infection, was started on fosfomycin for coverage of serratia marcescens. She has an appointment to follow-up with Urology tomorrow, however she states she is experiencing sediment in the catheter, hematuria, an odorous urine, and left flank pain. She contacted her urologist and was advised to present to the emergency department for evaluation. Plan: labs, urinalysis. placed back in waiting room pending bed availability <Kristal Sparks CNP - Last Filed: 01/08/23 12:57> Medications Administered Discontinued Medications Generic Name Dose Route Start Last Admin Trade Name Freq PRN Reason Stop Dose Admin Cephalexin HCl 500 mg 01/08/23 15:23 01/08/23 15:47 Cephalexin 500 Mg Capsule PO 01/08/23 15:24 500 mg ONCE ONE Administration Ketorolac Tromethamine 15 mg 01/08/23 14:47 01/08/23 15:23 Ketorolac Tromethamine 15 Mg/Ml Vial IM 01/08/23 14:48 15 mg ONCE ONE Administration <Kristal Sparks CNP - Last Filed: 01/08/23 12:57> Medications Administered Discontinued Medications Generic Name Dose Route Start Last Admin Trade Name Sandra PRN Reason Stop Dose Admin Cephalexin HCl 500 mg 01/08/23 15:23 01/08/23 15:47 Cephalexin 500 Mg Capsule PO 01/08/23 15:24 500 mg ONCE ONE Administration Ketorolac Tromethamine 15 mg 01/08/23 14:47 01/08/23 15:23 Ketorolac Tromethamine 15 Mg/Ml Vial IM 01/08/23 14:48 15 mg ONCE ONE Administration <KRISTOFER Mcconnell - Last Filed: 01/08/23 17:23> Medical Decision Making Medical Decision Making [facility] Narrative: Patient is a 37 year old assigned female at with a history of chronic hayes catheter and recent hysterectomy presenting to the emergency department today for a possible UTI. Patient's physical exam was unremarkable. Patient's blood work was unremarkable. Patient's urine showed an acute UTI. I explained my physical exam findings as well as all test results to the patient. I answered all questions asked by the patient. I stressed the importance of the patient taking her medication as prescribed. I stressed the importance of the patient following up with her primary care provider. I stressed the importance of the patient returning to the emergency department immediately if her symptoms were to worsen or if she were to develop any dizziness, shortness of breath, difficulty breathing, chest pain, blurry vision, loss of vision, nausea, vomiting, abdominal pain, fever, chills, back pain, or any other complaints. Patient verbalized agreement and understanding with this treatment plan and discharge. <KRISTOFER Mcconnell - Last Filed: 01/08/23 17:23> Differential Diagnosis Differential Diagnoses: The differential diagnosis associated with the presentation includes <KRISTOFER Mcconnell - Last Filed: 01/08/23 17:23> UTI <KRISTOFER Mcconnell - Last Filed: 01/08/23 17:23> Lab Data [facility] Lab Attestation statement: I reviewed the patient's lab results. <KRISTOFER Mcconnell - Last Filed: 01/08/23 17:23> Result Diagrams: 01/08/23 12:59 01/08/23 12:59 <Kristal Sparks CNP - Last Filed: 01/08/23 12:57> Labs: Lab Results 01/08/23 01/08/23 01/08/23 Range/Units 12:59 12:59 14:32 WBC 7.4 (4.8-10.8) X10*3/uL RBC 3.66 L (4.20-5.50) X10*6/uL Hgb 12.3 (12.0-16.0) g/dl Hct 36.7 L (37.0-47.0) % MCV 100.3 H (80.0-98.0) fL MCH 33.6 H (27.0-33.0) pg MCHC 33.5 (31.0-35.0) g/dl RDW 12.1 (11.0-16.0) % Plt Count 367 D (160-400) X10*3/uL MPV 8.9 L (9.4-12.3) fL Immature Gran % (Auto) 0.3 (0.0-0.4) % Neut % (Auto) 59.0 (45-73) % Lymph % (Auto) 30.6 (20-40) % [place] % (Auto) 6.5 (2-11) % Eos % (Auto) 2.7 (0-4) % Baso % (Auto) 0.9 (0-2) % Lymph # (Auto) 2.3 (1.2-4.9) X10*3/uL [place] # (Auto) 0.5 (0.1-1.2) X10*3/uL Eos # (Auto) 0.2 (0.0-0.4) X10*3/uL Baso # (Auto) 0.1 (0.0-0.2) X10*3/uL Abs Immat Gran (auto) 0.02 (0.00-0.03) X10*3/uL Absolute Neuts (auto) 4.4 (2.0-8.3) x10*3/uL Absolute Nucleated RBC 0.000 (0.0-0.012) X10*3/uL Nucleated RBC % (auto) 0.0 (0.0-0.2) /100WBC Sodium 141 (135-145) mmol/L Potassium 4.4 (3.3-5.1) mmol/L Chloride 107 (96-108) mmol/L Carbon Dioxide 27 (22-29) mmol/L Anion Gap 11 L (12-20) BUN 9 (9-16) mg/dL Creatinine 0.64 (0.5-1.4) mg/dL Estim Creat Clear Calc 109.8 Estimated GFR > 60 Random Glucose 90 (60-115) mg/dL Calcium 8.9 (8.4-10.2) mg/dL Total Bilirubin 0.9 (0.0-1.0) mg/dL AST 15 (5-31) U/L ALT 19 (0-31) U/L Alkaline Phosphatase 44 (39-117) U/L Total Protein 6.6 (6.5-8.0) g/dL Albumin 4.1 (3.5-5.0) g/dL Urine Color Yellow Urine Appearance Cloudy Urine pH 7.0 (5.0-9.0) Ur Specific [place] 1.010 (1.005-1.025) Urine Protein Trace (Neg-Trace) mg/dL Urine Glucose (UA) Negative (Negative) mg/dL Urine Ketones Negative (Negative) mg/dL Urine Blood Small (1+) H (Negative) Urine Nitrite Positive H (Negative) Ur Leukocyte Esterase Large (3+) H (Negative) Urine RBC 0-2 (0-2) /HPF Urine WBC 21-50 (0-5) /HPF Ur Squamous Epith Cells 3-5 (0-2) /HPF Urine Bacteria 4+ (None Seen) Hyaline Casts 0-2 (0-2) /LPF <Kristal Sparks, MEDICAL LAB DIRECTOR - Last Filed: 01/08/23 12:57> Lab Results 01/08/23 01/08/23 01/08/23 Range/Units 12:59 12:59 14:32 WBC 7.4 (4.8-10.8) X10*3/uL RBC 3.66 L (4.20-5.50) X10*6/uL Hgb 12.3 (12.0-16.0) g/dl Hct 36.7 L (37.0-47.0) % MCV 100.3 H (80.0-98.0) fL MCH 33.6 H (27.0-33.0) pg MCHC 33.5 (31.0-35.0) g/dl RDW 12.1 (11.0-16.0) % Plt Count 367 D (160-400) X10*3/uL MPV 8.9 L (9.4-12.3) fL Immature Gran % (Auto) 0.3 (0.0-0.4) % Neut % (Auto) 59.0 (45-73) % Lymph % (Auto) 30.6 (20-40) % [place] % (Auto) 6.5 (2-11) % Eos % (Auto) 2.7 (0-4) % Baso % (Auto) 0.9 (0-2) % Lymph # (Auto) 2.3 (1.2-4.9) X10*3/uL [place] # (Auto) 0.5 (0.1-1.2) X10*3/uL Eos # (Auto) 0.2 (0.0-0.4) X10*3/uL Baso # (Auto) 0.1 (0.0-0.2) X10*3/uL Abs Immat Gran (auto) 0.02 (0.00-0.03) X10*3/uL Absolute Neuts (auto) 4.4 (2.0-8.3) x10*3/uL Absolute Nucleated RBC 0.000 (0.0-0.012) X10*3/uL Nucleated RBC % (auto) 0.0 (0.0-0.2) /100WBC Sodium 141 (135-145) mmol/L Potassium 4.4 (3.3-5.1) mmol/L Chloride 107 (96-108) mmol/L Carbon Dioxide 27 (22-29) mmol/L Anion Gap 11 L (12-20) BUN 9 (9-16) mg/dL Creatinine 0.64 (0.5-1.4) mg/dL Estim Creat Clear Calc 109.8 Estimated GFR > 60 Random Glucose 90 (60-115) mg/dL Calcium 8.9 (8.4-10.2) mg/dL Total Bilirubin 0.9 (0.0-1.0) mg/dL AST 15 (5-31) U/L ALT 19 (0-31) U/L Alkaline Phosphatase 44 (39-117) U/L Total Protein 6.6 (6.5-8.0) g/dL Albumin 4.1 (3.5-5.0) g/dL Urine Color Yellow Urine Appearance Cloudy Urine pH 7.0 (5.0-9.0) Ur Specific [place] 1.010 (1.005-1.025) Urine Protein Trace (Neg-Trace) mg/dL Urine Glucose (UA) Negative (Negative) mg/dL Urine Ketones Negative (Negative) mg/dL Urine Blood Small (1+) H (Negative) Urine Nitrite Positive H (Negative) Ur Leukocyte Esterase Large (3+) H (Negative) Urine RBC 0-2 (0-2) /HPF Urine WBC 21-50 (0-5) /HPF Ur Squamous Epith Cells 3-5 (0-2) /HPF Urine Bacteria 4+ (None Seen) Hyaline Casts 0-2 (0-2) /LPF <KRISTOFER Mcconnell - Last Filed: 01/08/23 17:23> Discharge Plan Discharge Clinical Impression: Urinary tract infection <Kristal Sparks CNP - Last Filed: 01/08/23 12:57> Patient Disposition: Home, Self-Care <Kristal Sparks CNP - Last Filed: 01/08/23 12:57> Instructions: Urinary Tract Infection in Women (ED) <Kristal Sparks CNP - Last Filed: 01/08/23 12:57> Additional Instructions: Follow up with your primary care provider and your urologist. Return to the emergency department immediately if your symptoms worsen or if you develop any dizziness, shortness of breath, difficulty breathing, chest pain, blurry vision, loss of vision, nausea, vomiting, abdominal pain, fever, chills, back pain, or any other complaints. <Kristal Sparks CNP - Last Filed: 01/08/23 12:57> Prescriptions: New cephalexin 500 mg capsule 500 mg PO Q6H 7 Days Qty: 28 0RF No Action kyhuvpwefnny-bhoudwcvh-wajvoix 6.25-5-10 mg/5 mL syrup 5 ml PO Q4-6H PRN (Reason: flu symptoms) Qty: 118 0RF phenazopyridine [Pyridium] 100 mg tablet 100 mg PO Q8H PRN (Reason: pain) Qty: 5 0RF fluconazole [Diflucan] 150 mg tablet 150 mg PO DAILY Qty: 1 0RF cefuroxime axetil 250 mg tablet 250 mg PO BID 7 Days Qty: 14 0RF fluconazole [Diflucan] 150 mg tablet 150 mg PO Q3D Qty: 2 0RF sulfamethoxazole-trimethoprim [Bactrim DS] 800-160 mg tablet 1 tab PO BID 14 Days Qty: 28 0RF nitrofurantoin monohyd/m-cryst [Macrobid] 100 mg capsule 100 mg PO Q12H 7 Days Qty: 14 0RF Rx Instructions: must administer with a meal/food albuterol sulfate 90 mcg/actuation HFA aerosol inhaler 0 mcg inhalation prednisone 10 mg tablet 40 mg PO DAILY 5 Days Qty: 20 0RF doxycycline hyclate 100 mg capsule 100 mg PO BID 10 Days Qty: 20 0RF albuterol sulfate 2.5 mg /3 mL (0.083 %) solution for nebulization 2.5 mg inhalation Q4-6H PRN (Reason: shortness of breath or wheezing) 7 Days Qty: 75 0RF albuterol sulfate 90 mcg/actuation HFA aerosol inhaler 1 inh inhalation QID PRN (Reason: shortness of breath or wheezing) Qty: 8.5 0RF <Kristal Sparks CNP - Last Filed: 01/08/23 12:57> Referrals: [facility] [Provider Group] (Call to establish and follow up with a primary care provider. If you already have a primary care provider, please follow up with them.) [facility] Primary Care, [place] [Provider Group] (Call to establish and follow up with a primary care provider. If you already have a primary care provider, please follow up with them.) [facility] Primary Care,Valerie [Provider Group] (Call to establish and follow up with a primary care provider. If you already have a primary care provider, please follow up with them.) <Kristal Sparks CNP - Last Filed: 01/08/23 12:57> Stand Alone Forms: Work/School Release <Kristal Sparks CNP - Last Filed: 01/08/23 12:57> Interventions: ED Discharge Assessment Last Done: 01/08/23 16:09 <Kristal Sparks CNP - Last Filed: 01/08/23 12:57> Discharge Date/Time: 01/08/23 16:11 <Kristal Sparks CNP - Last Filed: 01/08/23 12:57> Print Language: Uzbek <Kristal Sparks CNP - Last Filed: 01/08/23 12:57>
[2023-01-08 12:49] VITALS: BP 121/84; PULSE 92; RESP 18; TEMP 36.4; O2SAT 97; BMI 20.3
[2023-01-08 13:03] LABS: MANUAL DIFF FLAG NO
[2023-01-08 13:04] LABS: Basophils Absolute Auto 0.1 X10*3/uL (0.0-0.2); Basophils Percent Auto 0.9 % (0-2); Eosinophils Absolute Auto 0.2 X10*3/uL (0.0-0.4); Eosinophils Percent Auto 2.7 % (0-4); Hematocrit 36.7 % (37.0-47.0); Hemoglobin 12.3 g/dl (12.0-16.0); Imm Gran Abs Auto 0.02 X10*3/uL (0.00-0.03); Imm Gran Pct Auto 0.3 % (0.0-0.4); Lymphocytes Absolute Auto 2.3 X10*3/uL (1.2-4.9); Lymphocytes Percent Auto 30.6 % (20-40); Mean Corpuscular HGB Conc 33.5 g/dl (31.0-35.0); Mean Corpuscular Hemoglobin 33.6 pg (27.0-33.0); Mean Corpuscular Volume 100.3 fL (80.0-98.0); Mean Platelet Volume 8.9 fL (9.4-12.3); Monocytes Absolute Auto 0.5 X10*3/uL (0.1-1.2); Monocytes Percent Auto 6.5 % (2-11); Neutrophils Absolute Auto 4.4 x10*3/uL (2.0-8.3); Platelet Count 367 X10*3/uL (160-400); Red Blood Count 3.66 X10*6/uL (4.20-5.50); Red Cell Distribution Width 12.1 % (11.0-16.0); White Blood Count 7.4 X10*3/uL (4.8-10.8)
[2023-01-08 13:24] LABS: Alanine Aminotransferase 19 U/L (0-31); Albumin Level 4.1 g/dL (3.5-5.0); Alkaline Phosphatase 44 U/L (39-117); Anion Gap 11 (12-20); Aspartate Amino Transferase 15 U/L (5-31); Bilirubin Total 0.9 mg/dL (0.0-1.0); Blood Urea Nitrogen 9 mg/dL (9-16); Calcium 8.9 mg/dL (8.4-10.2); Carbon Dioxide 27 mmol/L (22-29); Chloride 107 mmol/L (96-108); Creatinine Clr Calc Pharmacy 109.8; Estimated Glomerular Filt Rate > 60; Glucose Random 90 mg/dL (60-115); Potassium 4.4 mmol/L (3.3-5.1); Sodium 141 mmol/L (135-145); Total Protein 6.6 g/dL (6.5-8.0)
--- NOTE | 2023-01-08 14:39 | PC.NURSE ---
Urine sample sent from existing hayes catheter. Patient reporting pain radiating to R/L flank.
[2023-01-08 14:46] LABS: Appearance Urine Cloudy; Color Urine Yellow; Glucose Urine UA Negative (Negative); Leukocyte Esterase Urine Large (3+) (Negative); Nitrite Urine Positive (Negative); UMIC TRIGGER UACC YES; Urine Blood Small (1+) (Negative); Urine Ketones Negative (Negative); Urine Protein Trace mg/dL (Neg-Trace)
[2023-01-08 15:00] LABS: Bacteria Urine 4+ (None Seen); Hyaline Casts Urine 0-2 /LPF (0-2); RBC Urine 0-2 /HPF (0-2); UACC Culture Trigger YES; WBC Urine 21-50 /HPF (0-5)
[2023-01-08] MEDS: Ketorolac Tromethamine 15 MG/ML VIAL IM (15:23)
[2023-01-08] MEDS: cephALEXin 500 MG CAPSULE PO (15:47)
[2023-01-08 16:00] VITALS: BP 135/85; PULSE 72; RESP 16; TEMP 36.8; O2SAT 97
--- NOTE | 2023-01-08 16:00 | MHC.EDTECH ---
this pt assumed care of pt at 1500 ,pt vitals sign taken ,pt leaving now .
== END 2023-01-08 16:11 | disposition home or self-care (01) ==
PROVIDERS: Nurse Practitioner Family; Emergency Provider Emergency Medicine
DX: N39.0 Urinary tract infection, site not specified (principal); Z79.899 Other long term (current) drug therapy
CPT/HCPCS: 36415; 80053; 81001; 85025; 87086; 87088; 87186; 96372; 99284; J1885

== ENCOUNTER 2023-01-12 12:27 | Emergency (ER) | payer BC, SELFPAY ==
[2023-01-12 12:32] VITALS: BP 129/82; PULSE 83; RESP 16; TEMP 36.5; O2SAT 100; BMI 21.1
--- NOTE | 2023-01-12 12:33 | ED_ITS ---
HPI - General Adult General Chief complaint: Urogenital-Female <KRISTOFER Mcconnell - Last Filed: 01/12/23 12:34> Stated complaint: Needs IV antibiotics <KRISTOFER Mcconnell - Last Filed: 01/12/23 12:34> Time Seen by Provider: 01/12/23 13:52 <KRISTOFER Mcconnell - Last Filed: 01/12/23 12:34> Source: patient and old records reviewed <KRISTOFER Randolph - Last Filed: 01/12/23 16:09> Mode of arrival: ambulatory <KRISTOFER Randolph - Last Filed: 01/12/23 16:09> Limitations: no limitations <KRISTOFER Randolph Last Filed: 01/12/23 16:09> History of Present Illness HPI narrative: 37-year-old female with a history of a recent hysterectomy, cystocele, rectocele repair along with bladder sling at [facility] on December 24, course complicated by UTI, urinary retention requiring Landeros catheter who presents to the ER today for evaluation of a urinary tract infection. She was seen here in the ER 4 days ago and her Landeros catheter was exchanged. Her urine culture from that day is growing Serratia and Pseudomonas. She has allergies to Levaquin, ciprofloxacin, Bactrim. She was called and told to come to the ER for IV antibiotics. She reports her urine is still very foul smelling. She reports right kidney pain and chills. no fevers but she has been taking Tylenol and ibuprofen around the clock. No vomiting but she is nauseous. <KRISTOFER Randolph - Last Filed: 01/12/23 16:09> MD complaint: UTI requiring IV antibiotics <KRISTOFER Randolph - Last Filed: 01/12/23 16:09> Onset (ago): day(s) <KRISTOFER Randolph Last Filed: 01/12/23 16:09> Location: pelvis <KRISTOFER Randolph Last Filed: 01/12/23 16:09> Radiation: back <KRISTOFER Randolph Last Filed: 01/12/23 16:09> Severity: moderate <KRISTOFER Randolph Last Filed: 01/12/23 16:09> Severity scale (1-10): 6 <KRISTOFER Randolph - Last Filed: 01/12/23 16:09> Quality: aching <KRISTOFER Randolph - Last Filed: 01/12/23 16:09> Pain Consistency: constant <KRISTOFER Randolph Last Filed: 01/12/23 16:09> Relieving factors: none <KRISTOFER Randolph - Last Filed: 01/12/23 16:09> Exacerbating factors: none <KRISTOFER Randolph Last Filed: 01/12/23 16:09> Associated symptoms: fever/chills and nausea/vomiting <KRISTOFER Randolph - Last Filed: 01/12/23 16:09> Treatments prior to arrival: none <KRISTOFER Randolph Last Filed: 01/12/23 16:09> Related Data Home medications: Home Medications Medication Instructions Recorded Confirmed albuterol sulfate 90 mcg/actuation 0 mcg inhalation 11/16/21 aerosol inhaler Previous Rx's Medication Instructions Recorded cefuroxime axetil 250 mg tablet 250 mg PO BID 7 days #14 tabs 05/24/21 fluconazole 150 mg tablet 150 mg PO DAILY #1 tab 05/24/21 (Diflucan) phenazopyridine 100 mg tablet 100 mg PO Q8H PRN pain #5 tabs 05/24/21 (Pyridium) albuterol sulfate 2.5 mg/3 mL 2.5 mg (3 mL) inhalation Q4-6H PRN 11/16/21 (0.083 %) solution for nebulization shortness of breath or wheezing 1 week #75 mL albuterol sulfate 90 mcg/actuation 1 inh inhalation QID PRN shortness 11/16/21 aerosol inhaler of breath or wheezing #8.5 grams doxycycline hyclate 100 mg capsule 100 mg PO BID 10 days #20 caps 11/16/21 prednisone 10 mg tablet 40 mg PO DAILY 5 days #20 tabs 11/16/21 erdoomcetwbq-kiapddcyxdstl-vddlgpv 5 ml PO Q4-6H PRN flu symptoms 11/17/21 6.25 mg-5 mg-10 mg/5 mL oral syrup #118 mL fluconazole 150 mg tablet 150 mg PO Q3D 2 doses #2 tabs 11/17/22 (Diflucan) sulfamethoxazole 800 1 tab PO BID 14 days #28 tabs 11/25/22 mg-trimethoprim 160 mg tablet (Bactrim DS) nitrofurantoin 100 mg PO Q12H 7 days #14 caps 12/27/22 monohydrate/macrocrystals 100 mg capsule (Macrobid) cephalexin 500 mg capsule 500 mg PO Q6H 7 days #28 caps 01/08/23 fluconazole 150 mg tablet 150 mg PO ONCE #1 tab 01/12/23 (Diflucan) fosfomycin tromethamine 3 gram 1 packet PO Q OTHER DAY 3 doses #2 01/12/23 oral packet ea methenamine hippurate 1 gram tablet 1 g PO BID #60 tabs 01/12/23 <KRISTOFER Mcconnell - Last Filed: 01/12/23 12:34> Allergies/adverse reactions: Allergies Allergy/AdvReac Type Severity Reaction Status Date / Time ciprofloxacin [CIPROFLOXACIN] Allergy Unknown HIVES/THROAT Verified 01/12/23 12:32 CLOSES gluten Allergy Unknown Verified 01/12/23 12:32 levofloxacin [From Levaquin] Allergy Rash Verified 01/12/23 12:32 shellfish derived Allergy Unknown Verified 01/12/23 12:32 soy Allergy Unknown Verified 01/12/23 12:32 sulfamethoxazole Allergy Hives Verified 01/12/23 12:32 [From Bactrim] trimethoprim [From Bactrim] Allergy Hives Verified 01/12/23 12:32 <KRISTOFER Mcconnell - Last Filed: 01/12/23 12:34> Review of Systems Review of Systems: Yes all other systems are reviewed and are negative <KRISTOFER Randolph - Last Filed: 01/12/23 16:09> [facility] Social History Social History: Social History Alcohol intake: unknown Patient Tobacco Use Status: Current everyday Tobacco user Smoked in Last 30 Days: No Use of substances other than those prescribed or required for medical reasons: Unknown Last Used Substance: Unknown Advance Directives: No Advance Directives Information Provided: Yes <KRISTOFER Mcconnell - Last Filed: 01/12/23 12:34> Physical Exam ED Vital Signs: Vital Signs - 24 hr 01/12/23 12:32 Temperature 97.7 F Pulse Rate 83 Respiratory Rate 16 Blood Pressure 129/82 Pulse Oximetry 100 Oxygen Delivery Method Room Air BMI result Body Mass Index 21.1 <KRISTOFER Mcconnell Last Filed: 01/12/23 12:34> Vital Signs - 24 hr 01/12/23 12:32 Temperature 97.7 F Pulse Rate 83 Respiratory Rate 16 Blood Pressure 129/82 Pulse Oximetry 100 Oxygen Delivery Method Room Air BMI result Body Mass Index 21.1 <KRISTOFER Randolph Last Filed: 01/12/23 16:09> Appearance: Alert. Oriented X3. No acute distress. Eyes: Pupils equal, round and reactive to light. ENT: Pharynx normal. Neck: Normal inspection. Neck supple. CVS: Normal heart rate and rhythm. Pulses normal. Respiratory: No respiratory distress. Breath sounds normal. Abdomen: Soft and nontender. +BS x4 : no swelling of the mons pubis or labia major, no erythema or external excoriations Skin: Skin warm and dry. Normal skin color. Normal skin turgor. No rashes. Extremities: No lower extremity edema. Neuro: Oriented X 3. No motor deficit. No sensory deficit. <KRISTOFER Randolph Last Filed: 01/12/23 16:09> Course Course Course Narrative: RME performed by Chelita Bone PA-C. Patient is a 37 year old female presenting to the emergency department with positive urine cultures that requires IV antibiotics. Labs ordered. Patient placed back in the waiting room pending room availability and results. <KRISTOFER Mcconnell Last Filed: 01/12/23 12:34> Medications Administered Discontinued Medications Generic Name Dose Route Start Last Admin Trade Name Sandra PRN Reason Stop Dose Admin Fluconazole 150 mg 01/12/23 15:46 01/12/23 16:03 Fluconazole 150 Mg Tablet PO 01/12/23 15:47 150 mg ONCE ONE Administration Cefepime HCl 2 gm/ Sodium 50 mls @ 100 mls/hr 01/12/23 14:32 01/12/23 15:33 Chloride IV 01/12/23 15:01 Infused ONCE ONE Infusion Ibuprofen 600 mg 01/12/23 15:40 01/12/23 16:03 Ibuprofen 600 Mg Tablet PO 01/12/23 15:41 600 mg ONCE ONE Administration Phenazopyridine HCl 100 mg 01/12/23 15:40 01/12/23 16:04 Phenazopyridine Hcl 100 Mg Tablet PO 01/12/23 15:41 100 mg ONCE ONE Administration <KRISTOFER Mcconnell - Last Filed: 01/12/23 12:34> Medications Administered Discontinued Medications Generic Name Dose Route Start Last Admin Trade Name Sandra PRN Reason Stop Dose Admin Fluconazole 150 mg 01/12/23 15:46 01/12/23 16:03 Fluconazole 150 Mg Tablet PO 01/12/23 15:47 150 mg ONCE ONE Administration Cefepime HCl 2 gm/ Sodium 50 mls @ 100 mls/hr 01/12/23 14:32 01/12/23 15:33 Chloride IV 01/12/23 15:01 Infused ONCE ONE Infusion Ibuprofen 600 mg 01/12/23 15:40 01/12/23 16:03 Ibuprofen 600 Mg Tablet PO 01/12/23 15:41 600 mg ONCE ONE Administration Phenazopyridine HCl 100 mg 01/12/23 15:40 01/12/23 16:04 Phenazopyridine Hcl 100 Mg Tablet PO 01/12/23 15:41 100 mg ONCE ONE Administration <KRISTOFER Randolph - Last Filed: 01/12/23 16:09> Medical Decision Making Medical Decision Making MDM Narrative: 37-year-old female with history of recent surgery at [facility] complicated by urinary retention requiring Landeros catheter and recurrent infections who presents to the ER for evaluation of a positive urine culture. Her urine culture was reviewed. She is growing Serratia and Pseudomonas. She is on Keflex and completed a course of fosfomycin this week. She reports ongoing foul-smelling urine and some bladder pains. He also reports she has the yeast infection. She denies any fevers at home. No vomiting. Lab workup today is showing no leukocytosis. no fevers and she is nontoxic-a ppearing. Discussed the urine culture results with Infectious Disease - most likely colonization, she states usually does not treat with IV antibiotics unless toxic. Would repeat fosfamycin regimen and methenamine 1 g b.i.d. indefinitely - 1 mo supply prescribed. plan discussed with patient and partner and all questions were answered <KRISTOFER Randolph - Last Filed: 01/12/23 16:09> Differential Diagnosis Differential Diagnoses: The differential diagnosis associated with the presentation includes <KRISTOFER Randolph - Last Filed: 01/12/23 16:09> Polymicrobial UTI, colonization, pyelonephritis, inaccurate urine cu lture given chronic Landeros, No evidence of sepsis or severe sepsis. <KRISTOFER Randolph - Last Filed: 01/12/23 16:09> Admission/Observation Consideration of admission/observation: Escalation of care including admission/observation considered <KRISTOFER Randolph - Last Filed: 01/12/23 16:09> Considered IV antibiotics and admission however after discussion with Infectious Disease - this may be colonization and not true in fection. She is not septic or toxic appearing. No leukocytosis or fevers. <KRISTOFER Randolph - Last Filed: 01/12/23 16:09> Consult Healthcare Provider Management of the patient was discussed with: Textile Dyer <KRISTOFER Randolph - Last Filed: 01/12/23 16:09> ID Dr. Blake - Recommending p.o. fosfomycin <KRISTOFER Randolph - Last Filed: 01/12/23 16:09> Lab Data MDM Lab Attestation statement: I reviewed the patient's lab results. <KRISTOFER Randolph Last Filed: 01/12/23 16:09> no leukocytosis, normal kidney function, no major metabolic derangement. Urine cultures were reviewed. <KRISTOFER Randolph - Last Filed: 01/12/23 16:09> Result Diagrams: 01/12/23 14:01 01/12/23 14:01 <KRISTOFER Mcconnell - Last Filed: 01/12/23 12:34> Labs: Lab Results 01/12/23 01/12/23 01/12/23 Range/Units 13:12 14:01 14:01 WBC 6.6 (4.8-10.8) X10*3/uL RBC 3.96 L (4.20-5.50) X10*6/uL Hgb 13.1 (12.0-16.0) g/dl Hct 39.4 (37.0-47.0) % MCV 99.5 H (80.0-98.0) fL MCH 33.1 H (27.0-33.0) pg MCHC 33.2 (31.0-35.0) g/dl RDW 11.9 (11.0-16.0) % Plt Count 371 (160-400) X10*3/uL MPV 9.0 L (9.4-12.3) fL Immature Gran % (Auto) 0.5 H (0.0-0.4) % Neut % (Auto) 59.4 (45-73) % Lymph % (Auto) 30.4 (20-40) % Summers % (Auto) 5.9 (2-11) % Eos % (Auto) 3.0 (0-4) % Baso % (Auto) 0.8 (0-2) % Lymph # (Auto) 2.0 (1.2-4.9) X10*3/uL Summers # (Auto) 0.4 (0.1-1.2) X10*3/uL Eos # (Auto) 0.2 (0.0-0.4) X10*3/uL Baso # (Auto) 0.1 (0.0-0.2) X10*3/uL Abs Immat Gran (auto) 0.03 (0.00-0.03) X10*3/uL Absolute Neuts (auto) 3.9 (2.0-8.3) x10*3/uL Absolute Nucleated RBC 0.000 (0.0-0.012) X10*3/uL Nucleated RBC % (auto) 0.0 (0.0-0.2) /100WBC Sodium 141 (135-145) mmol/L Potassium 3.7 (3.3-5.1) mmol/L Chloride 105 (96-108) mmol/L Carbon Dioxide 26 (22-29) mmol/L Anion Gap 14 (12-20) BUN 12 (9-16) mg/dL Creatinine 0.66 (0.5-1.4) mg/dL Estim Creat Clear Calc 110.6 Estimated GFR > 60 Random Glucose 86 (60-115) mg/dL Calcium 8.8 (8.4-10.2) mg/dL Magnesium 1.7 (1.6-2.6) mg/dL Total Bilirubin 1.4 H (0.0-1.0) mg/dL AST 16 (5-31) U/L ALT 16 (0-31) U/L Alkaline Phosphatase 48 (39-117) U/L Total Protein 7.4 (6.5-8.0) g/dL Albumin 4.5 (3.5-5.0) g/dL Urine Color Yellow Urine Appearance Cloudy Urine pH 7.0 (5.0-9.0) Ur Specific [place] <= 1.005 (1.005-1.025) Urine Protein Negative (Neg-Trace) mg/dL Urine Glucose (UA) Negative (Negative) mg/dL Urine Ketones Negative (Negative) mg/dL Urine Blood Small (1+) H (Negative) Urine Nitrite Positive H (Negative) Ur Leukocyte Esterase Large (3+) H (Negative) Urine RBC 0-2 (0-2) /HPF Urine WBC 11-20 H (0-5) /HPF Ur Squamous Epith Cells 0-2 (0-2) /HPF Urine Bacteria 1+ (None Seen) Hyaline Casts 0-2 (0-2) /LPF <KRISTOFER Mcconnell - Last Filed: 01/12/23 12:34> Lab Results 01/12/23 01/12/23 01/12/23 Range/Units 13:12 14:01 14:01 WBC 6.6 (4.8-10.8) X10*3/uL RBC 3.96 L (4.20-5.50) X10*6/uL Hgb 13.1 (12.0-16.0) g/dl Hct 39.4 (37.0-47.0) % MCV 99.5 H (80.0-98.0) fL MCH 33.1 H (27.0-33.0) pg MCHC 33.2 (31.0-35.0) g/dl RDW 11.9 (11.0-16.0) % Plt Count 371 (160-400) X10*3/uL MPV 9.0 L (9.4-12.3) fL Immature Gran % (Auto) 0.5 H (0.0-0.4) % Neut % (Auto) 59.4 (45-73) % Lymph % (Auto) 30.4 (20-40) % Summers % (Auto) 5.9 (2-11) % Eos % (Auto) 3.0 (0-4) % Baso % (Auto) 0.8 (0-2) % Lymph # (Auto) 2.0 (1.2-4.9) X10*3/uL Summers # (Auto) 0.4 (0.1-1.2) X10*3/uL Eos # (Auto) 0.2 (0.0-0.4) X10*3/uL Baso # (Auto) 0.1 (0.0-0.2) X10*3/uL Abs Immat Gran (auto) 0.03 (0.00-0.03) X10*3/uL Absolute Neuts (auto) 3.9 (2.0-8.3) x10*3/uL Absolute Nucleated RBC 0.000 (0.0-0.012) X10*3/uL Nucleated RBC % (auto) 0.0 (0.0-0.2) /100WBC Sodium 141 (135-145) mmol/L Potassium 3.7 (3.3-5.1) mmol/L Chloride 105 (96-108) mmol/L Carbon Dioxide 26 (22-29) mmol/L Anion Gap 14 (12-20) BUN 12 (9-16) mg/dL Creatinine 0.66 (0.5-1.4) mg/dL Estim Creat Clear Calc 110.6 Estimated GFR > 60 Random Glucose 86 (60-115) mg/dL Calcium 8.8 (8.4-10.2) mg/dL Magnesium 1.7 (1.6-2.6) mg/dL Total Bilirubin 1.4 H (0.0-1.0) mg/dL AST 16 (5-31) U/L ALT 16 (0-31) U/L Alkaline Phosphatase 48 (39-117) U/L Total Protein 7.4 (6.5-8.0) g/dL Albumin 4.5 (3.5-5.0) g/dL Urine Color Yellow Urine Appearance Cloudy Urine pH 7.0 (5.0-9.0) Ur Specific [place] <= 1.005 (1.005-1.025) Urine Protein Negative (Neg-Trace) mg/dL Urine Glucose (UA) Negative (Negative) mg/dL Urine Ketones Negative (Negative) mg/dL Urine Blood Small (1+) H (Negative) Urine Nitrite Positive H (Negative) Ur Leukocyte Esterase Large (3+) H (Negative) Urine RBC 0-2 (0-2) /HPF Urine WBC 11-20 H (0-5) /HPF Ur Squamous Epith Cells 0-2 (0-2) /HPF Urine Bacteria 1+ (None Seen) Hyaline Casts 0-2 (0-2) /LPF <KRISTOFER Randolph - Last Filed: 01/12/23 16:09> Independent Historian Clinical information obtained from an independent historian. History obtained from or confirmed by: Spouse <KRISTOFER Randolph - Last Filed: 01/12/23 16:09> External Record Review External record reviewed: Office record, Outpatient record and Prior outpatient labs <KRISTOFER Randolph - Last Filed: 01/12/23 16:09> Prescription Management I considered prescription management with: Antibiotic <KRISTOFER Randolph - Last Filed: 01/12/23 16:09> Chronic Conditions Patient?s care impacted by: Other ( Urinary retention, recurrent UTI) <KRISTOFER Randolph - Last Filed: 01/12/23 16:09> Discharge Plan Discharge Clinical Impression: UTI (urinary tract infection) <KRISTOFER Mcconnell - Last Filed: 01/12/23 12:34> Patient Disposition: Home, Self-Care <KRISTOFER Mcconnell - Last Filed: 01/12/23 12:34> Instructions: Catheter-associated Urinary Tract Infection (ED) <KRISTOFER Mcconnell - Last Filed: 01/12/23 12:34> Additional Instructions: Take the prescribed fosfomycin starting tomorrow. Repeat again in 3 days. Repeat your Diflucan in 3 days. You were given 1st dose today. Continue your cephalexin as scheduled. Follow-up with your urogynecologist on Saturday as scheduled. If you develop new or worsening symptoms call 911 or come back to the ER for further evaluation. <KRISTOFER Mcconnell - Last Filed: 01/12/23 12:34> Prescriptions: New fosfomycin tromethamine 3 gram packet 1 packet PO Q OTHER DAY Qty: 2 0RF fluconazole [Diflucan] 150 mg tablet 150 mg PO ONCE Qty: 1 0RF methenamine hippurate 1 gram tablet 1 g PO BID Qty: 60 0RF No Action dacivsjclnij-gmriksfss-txmwewi 6.25-5-10 mg/5 mL syrup 5 ml PO Q4-6H PRN (Reason: flu symptoms) Qty: 118 0RF phenazopyridine [Pyridium] 100 mg tablet 100 mg PO Q8H PRN (Reason: pain) Qty: 5 0RF fluconazole [Diflucan] 150 mg tablet 150 mg PO DAILY Qty: 1 0RF cefuroxime axetil 250 mg tablet 250 mg PO BID 7 Days Qty: 14 0RF fluconazole [Diflucan] 150 mg tablet 150 mg PO Q3D Qty: 2 0RF cephalexin 500 mg capsule 500 mg PO Q6H 7 Days Qty: 28 0RF sulfamethoxazole-trimethoprim [Bactrim DS] 800-160 mg tablet 1 tab PO BID 14 Days Qty: 28 0RF nitrofurantoin monohyd/m-cryst [Macrobid] 100 mg capsule 100 mg PO Q12H 7 Days Qty: 14 0RF Rx Instructions: must administer with a meal/food albuterol sulfate 90 mcg/actuation HFA aerosol inhaler 0 mcg inhalation prednisone 10 mg tablet 40 mg PO DAILY 5 Days Qty: 20 0RF doxycycline hyclate 100 mg capsule 100 mg PO BID 10 Days Qty: 20 0RF albuterol sulfate 2.5 mg /3 mL (0.083 %) solution for nebulization 2.5 mg inhalation Q4-6H PRN (Reason: shortness of breath or wheezing) 7 Days Qty: 75 0RF albuterol sulfate 90 mcg/actuation HFA aerosol inhaler 1 inh inhalation QID PRN (Reason: shortness of breath or wheezing) Qty: 8.5 0RF <KRISTOFER Mcconnell - Last Filed: 01/12/23 12:34>
[2023-01-12 13:27] LABS: Appearance Urine Cloudy; Color Urine Yellow; Glucose Urine UA Negative (Negative); Leukocyte Esterase Urine Large (3+) (Negative); Nitrite Urine Positive (Negative); Specific Gravity - Urine <= 1.005 (1.005-1.025); UMIC TRIGGER UACC YES; Urine Blood Small (1+) (Negative); Urine Ketones Negative (Negative); Urine Protein Negative (Neg-Trace)
[2023-01-12 13:37] LABS: Bacteria Urine 1+ (None Seen); Hyaline Casts Urine 0-2 /LPF (0-2); RBC Urine 0-2 /HPF (0-2); Squamous Epithelial Cell Urine 0-2 /HPF (0-2); UACC Culture Trigger YES
[2023-01-12 14:07] LABS: MANUAL DIFF FLAG NO
--- NOTE | 2023-01-12 14:11 | PC.NURSE ---
Patient presents to ED with concern for urinary infection AOx 4 neuros intact no distress noted urine clear yellow no odor noted urine bag changed from foey for clean urine collection. IV access obtained labs collected and sent. Will CTM
[2023-01-12 14:16] LABS: Basophils Absolute Auto 0.1 X10*3/uL (0.0-0.2); Basophils Percent Auto 0.8 % (0-2); Eosinophils Absolute Auto 0.2 X10*3/uL (0.0-0.4); Hematocrit 39.4 % (37.0-47.0); Hemoglobin 13.1 g/dl (12.0-16.0); Imm Gran Abs Auto 0.03 X10*3/uL (0.00-0.03); Imm Gran Pct Auto 0.5 % (0.0-0.4); Lymphocytes Percent Auto 30.4 % (20-40); Mean Corpuscular HGB Conc 33.2 g/dl (31.0-35.0); Mean Corpuscular Hemoglobin 33.1 pg (27.0-33.0); Mean Corpuscular Volume 99.5 fL (80.0-98.0); Monocytes Absolute Auto 0.4 X10*3/uL (0.1-1.2); Monocytes Percent Auto 5.9 % (2-11); Neutrophils Absolute Auto 3.9 x10*3/uL (2.0-8.3); Neutrophils Percent Auto 59.4 % (45-73); Platelet Count 371 X10*3/uL (160-400); Red Blood Count 3.96 X10*6/uL (4.20-5.50); Red Cell Distribution Width 11.9 % (11.0-16.0); White Blood Count 6.6 X10*3/uL (4.8-10.8)
[2023-01-12 14:24] LABS: Alanine Aminotransferase 16 U/L (0-31); Albumin Level 4.5 g/dL (3.5-5.0); Alkaline Phosphatase 48 U/L (39-117); Anion Gap 14 (12-20); Aspartate Amino Transferase 16 U/L (5-31); Bilirubin Total 1.4 mg/dL (0.0-1.0); Blood Urea Nitrogen 12 mg/dL (9-16); Calcium 8.8 mg/dL (8.4-10.2); Carbon Dioxide 26 mmol/L (22-29); Chloride 105 mmol/L (96-108); Creatinine Clr Calc Pharmacy 110.6; Estimated Glomerular Filt Rate > 60; Glucose Random 86 mg/dL (60-115); Magnesium 1.7 mg/dL (1.6-2.6); Potassium 3.7 mmol/L (3.3-5.1); Sodium 141 mmol/L (135-145); Total Protein 7.4 g/dL (6.5-8.0)
[2023-01-12] MEDS: cefEPime HCl 2 GM in 0.9 % Sodium Chloride 50 ML IV (14:45)
[2023-01-12 16:00] VITALS: BP 127/73; PULSE 58; RESP 16; TEMP 36.8; O2SAT 100
[2023-01-12] MEDS: Fluconazole 150 MG TABLET PO (16:03)
[2023-01-12] MEDS: Ibuprofen 600 MG TABLET PO (16:03)
[2023-01-12] MEDS: Phenazopyridine HCL 100 MG TABLET PO (16:04)
--- NOTE | 2023-01-12 16:13 | PC.NURSE ---
Drainage bag hanged to leg bag
== END 2023-01-12 16:27 | disposition home or self-care (01) ==
PROVIDERS: Physician Assistant Medical; Emergency Provider Emergency Medicine
DX: N39.0 Urinary tract infection, site not specified (principal); B96.89 Other specified bacterial agents as the cause of diseases classified elsewhere; F17.200 Nicotine dependence, unspecified, uncomplicated; Z87.440 Personal history of urinary (tract) infections; Z96.0 Presence of urogenital implants
CPT/HCPCS: 36415; 80053; 81001; 83735; 85025; 87040; 87086; 87088; 87186; 96365; 99284; J0692

== ENCOUNTER 2023-04-04 13:26 | Outpatient (REF) | payer BC, OTHER, SELFPAY ==
[2023-04-04 16:11] LABS: Folate 8.5 ng/mL (> or = 4.0); Vitamin B12 390 pg/mL (200-900)
== END 2023-04-04 13:27 | disposition home or self-care (01) ==
LOC: HO.LAB 13:26
PROVIDERS: PCP Internal Medicine; Visit Provider Nurse Practitioner
DX: K59.04 Chronic idiopathic constipation (principal); D53.9 Nutritional anemia, unspecified
CPT/HCPCS: 36415; 82607; 82746; 84443

== ENCOUNTER 2023-04-15 19:06 | Emergency (ER) | payer BC, SELFPAY ==
--- NOTE | ~2023-04-15 | XR_ITS ---
EXAMINATION: XR ABDOMEN KUB CLINICAL INDICATION: Reason for Exam constipation COMPARISON: Renal ultrasound 05/24/2021 TECHNIQUE: AP view of the abdomen. FINDINGS: Lines or devices: None. Nonobstructive bowel gas pattern. Mild to moderate colonic stool burden in the right hemicolon predominantly. Supine technique limits evaluation for extraluminal air although no secondary findings are appreciated. Calcified phleboliths in the pelvis. Lung bases appear clear. Bilateral os acetabuli. XR/XR KUB IMPRESSION: Mild to moderate colonic stool burden in the right hemicolon predominantly. Nonobstructive bowel gas pattern.
[2023-04-15 19:26] VITALS: BP 149/88; PULSE 78; RESP 18; TEMP 36.4; O2SAT 98; BMI 21.6
--- NOTE | 2023-04-15 19:26 | ED.GENADULT ---
HPI - General Adult General Chief complaint: Abdominal Pain Stated complaint: ? unable to use the bathroom Time Seen by Provider: 04/15/23 21:29 Source: patient, family, RN notes reviewed and old records reviewed Mode of arrival: ambulatory Limitations: no limitations History of Present Illness HPI narrative: Patient is a 37-year-old female with history of CIC, PCOS, asthma, GERD, IBS, hernia repair, urethral sling and cystocele repair on 12/24/22 presenting to the emergency department with complaint of left sided abdominal pain and constipation. States after seeing [facility] [place] on 04/04/23 was told to discontinue her usual treatments and begin taking Linzess. She took this as prescribed and was unable to have a bowel movement. She called GI and was told to double the Linzess and also add mag citrate and an enema. She did this and was still unable to have a bowel movement. She reports one episode of vomiting after eating dinner at [employer] last night. Denies any hematemesis, hematochezia, or melena. Denies fevers. Was able to tolerate food today but states that eating increases her pain. She reports last normal BM was 03/31/23. Denies any urinary symptoms. MD complaint: constipation Onset (ago): week(s) Location: abdomen Radiation: non-radiation Severity: severe Pain Consistency: constant Relieving factors: none Exacerbating factors: eating Associated symptoms: denies other symptoms Treatments prior to arrival: other (enema, mag citrate) Related Data Home Medications Medication Instructions Recorded Confirmed albuterol sulfate 90 mcg/actuation 2 puff inhalation 04/04/23 aerosol inhaler magnesium citrate 300 ml PO .twice weekly PRN 04/04/23 nicotine (polacrilex) 4 mg gum 4 mg buccal Q2H 04/04/23 sertraline 25 mg tablet (Zoloft) 25 mg PO DAILY 04/04/23 Previous Rx's Medication Instructions Recorded albuterol sulfate 90 mcg/actuation 1 inh inhalation QID PRN shortness 11/16/21 aerosol inhaler of breath or wheezing #8.5 grams linaclotide 145 mcg capsule 145 mcg PO QAM #30 caps 04/04/23 (Linzess) peg 3350-electrolytes 236 240 ml PO Q10M #4,000 mL 04/15/23 gram-22.74 gram-6.74 gram-5.86 gram solution (GaviLyte-G) Allergies Allergy/AdvReac Type Severity Reaction Status Date / Time ciprofloxacin [CIPROFLOXACIN] Allergy Unknown HIVES/THROAT Verified 04/15/23 19:26 CLOSES gluten Allergy Unknown Verified 04/15/23 19:26 levofloxacin [From Levaquin] Allergy Rash Verified 04/15/23 19:26 shellfish derived Allergy Unknown Verified 04/15/23 19:26 soy Allergy Unknown Verified 04/15/23 19:26 sulfamethoxazole Allergy Hives Verified 04/15/23 19:26 [From Bactrim] trimethoprim [From Bactrim] Allergy Hives Verified 04/15/23 19:26 nuts Allergy Severe unknown Uncoded 04/04/23 13:37 Review of Systems Review of Systems: As per HPI. Yes all other systems are reviewed and are negative Constitutional: Constitutional: Reports as per HPI [facility] Past Medical History Medical History (Updated 04/15/23 @ 22:27 by Evelin Jarrett NP) Bilateral inguinal hernia Surgical History (Updated 04/04/23 @ 13:39 by LETY Campo) H/O bilateral inguinal hernia repair H/O esophagogastroduodenoscopy H/O hand surgery S/P tubal ligation Status post creation of urethral sling by suprapubic approach Family History Family History (Updated 04/04/23 @ 13:36 by HEATHER Bautista) Mother Diverticulitis Maternal Grandfather Colon cancer Paternal Grandfather Cirrhosis Social History Social History (Updated 04/04/23 @ 13:44 by HEATHER Bautista) Alcohol intake: unknown Patient Tobacco Use Status: Current everyday Tobacco user Advance Directives: No Advance Directives Information Provided: No Physical Exam ED Vital Signs: Vital Signs - 24 hr 04/15/23 19:26 Temperature 97.6 F Pulse Rate 78 Respiratory Rate 18 Blood Pressure 149/88 H Pulse Oximetry 98 Oxygen Delivery Method Room Air BMI result Body Mass Index 21.6 Vital signs have been reviewed and appear to be correct. Blood pressure elevated. Heart rate normal. Respiratory rate normal. Temperature normal. Oxygen saturation normal. Const General: cooperative, healthy appearing and no acute distress Orientation/consciousness: oriented to person, oriented to place, oriented to time and patient oriented x3 Limitations: no limitations HENMT Head: Yes normocephalic and Yes atraumatic Ears: external ears normal General nose exam: Normal external nose present Face and sinus: Yes face symmetric Mouth: oropharynx normal and moist mucous membranes Throat: Yes uvula midline Eyes Pupils: Equal, round and reactive pupils present Neck Neck: Yes normal visual inspection and Yes supple Resp Effort & Inspection: normal respiratory effort and able to speak in complete sentences Auscultation: clear to auscultation bilaterally Cardio Rate: regular rate Rhythm: regular rhythm Heart sounds: S1 normal heart sound present and S2 normal heart sound present GI Palpation (GI): Soft to palpation and nontender Auscultation: normoactive bowel sounds General: Yes no CVA tenderness Back/Spine/Pelvis Back: no CVA tenderness Skin General skin exam: elasticity normal and turgor normal Neuro General: oriented to person, oriented to place, oriented to time, patient oriented x3, moves all extremities, no focal motor deficits and CN's II-XI intact bilaterally Cranial nerves: Yes Equal, round and reactive pupils present Cognition (Neuro): normal cognition Extrem General: Yes full ROM, Yes no pedal edema and Yes no calf tenderness Psych Mental Status: mental status grossly normal Affect: normal affect Thought process: Normal thought process present Course Course Course Narrative: RME: 37yo F w/PMHx idiopathic constipation, s/p cystocele/rectocyle & hysterectomy at [facility] on 12/24 c/o worsening constipation since 03/31, only passing little consuelo. Admits to abdominal pain with eating. Is passing gas, minimally. Admits to nausea and vomiting yesterday Labs, UA, KUB ordered Full HPI, ROS and PE to be performed by primary ED provider. Medical Decision Making Medical Decision Making [facility] Narrative: Patient is a 37-year-old female with history of CIC, PCOS, asthma, GERD, IBS, hernia repair, urethral sling and cystocele repair on 12/24/22 presenting to the emergency department with complaint of left sided abdominal pain and constipation. On exam patient is awake, A+Ox3, VS WNL, afebrile, nontoxic appearing, abdomen soft, nontender, no guarding or rebound tenderness, normoactive bowel sounds. Labs unchanged from baseline, other than mildly elevated bilirubin. Patient denies any RUQ abdominal pain. Mild to moderate colonic stool burden in right hemicolon on x-ray without evidence of obstruction. Differential includes constipation, bowel obstruction, mass. Unlikely appendicitis, diverticulitis. Will prescribe Golytely and patient instructed to contact Dr. Roberson's office in the morning for further management. Return precautions discussed at bedside. Patient verbalized understanding of and agreement with plan. Differential Diagnosis Differential Diagnoses: The differential diagnosis associated with the presentation includes As above. Lab Data MDM Lab Attestation statement: I reviewed the patient's lab results. 04/15/23 19:49 04/15/23 19:49 Labs: Lab Results 04/15/23 04/15/23 Range/Units 19:49 19:49 WBC 5.7 (4.8-10.8) X10*3/uL RBC 3.55 L (4.20-5.50) X10*6/uL Hgb 11.7 L (12.0-16.0) g/dl Hct 35.1 L (37.0-47.0) % MCV 98.9 H (80.0-98.0) fL MCH 33.0 (27.0-33.0) pg MCHC 33.3 (31.0-35.0) g/dl RDW 12.0 (11.0-16.0) % Plt Count 252 D (160-400) X10*3/uL MPV 9.0 L (9.4-12.3) fL Immature Gran % (Auto) 0.2 (0.0-0.4) % Neut % (Auto) 45.5 (45-73) % Lymph % (Auto) 44.4 H (20-40) % [place] % (Auto) 6.8 (2-11) % Eos % (Auto) 2.6 (0-4) % Baso % (Auto) 0.5 (0-2) % Lymph # (Auto) 2.5 (1.2-4.9) X10*3/uL [place] # (Auto) 0.4 (0.1-1.2) X10*3/uL Eos # (Auto) 0.2 (0.0-0.4) X10*3/uL Baso # (Auto) 0.0 (0.0-0.2) X10*3/uL Abs Immat Gran (auto) 0.01 (0.00-0.03) X10*3/uL Absolute Neuts (auto) 2.6 (2.0-8.3) x10*3/uL Absolute Nucleated RBC 0.000 (0.0-0.012) X10*3/uL Nucleated RBC % (auto) 0.0 (0.0-0.2) /100WBC Sodium 141 (135-145) mmol/L Potassium 3.9 (3.3-5.1) mmol/L Chloride 107 (96-108) mmol/L Carbon Dioxide 28 (22-29) mmol/L Anion Gap 10 L (12-20) BUN 13 (9-16) mg/dL Creatinine 0.74 (0.5-1.4) mg/dL Estim Creat Clear Calc 99.2 Estimated GFR > 60 Random Glucose 93 (60-115) mg/dL Calcium 9.0 (8.4-10.2) mg/dL Magnesium 1.9 (1.6-2.6) mg/dL Total Bilirubin 2.1 H (0.0-1.0) mg/dL Direct Bilirubin 0.6 H (0.0-0.5) mg/dL AST 13 (5-31) U/L ALT 13 (0-31) U/L Alkaline Phosphatase 40 (39-117) U/L Total Protein 6.6 (6.5-8.0) g/dL Albumin 4.0 (3.5-5.0) g/dL Lipase 23 (8-78) U/L Independent Interpretation I performed an independent interpretation of an: Plain X-Ray Interpretation: I independently reviewed the x-ray and agree with the radiologist's interpretation. Radiology Impression Discussion of test interpretation with radiology: I have reviewed the radiologist's reading. Radiologist Impression: FINDINGS: Lines or devices: None. Nonobstructive bowel gas pattern. Mild to moderate colonic stool burden in the right hemicolon predominantly. Supine technique limits evaluation for extraluminal air although no secondary findings are appreciated. Calcified phleboliths in the pelvis. Lung bases appear clear. Bilateral os acetabuli. XR/XR KUB IMPRESSION: Mild to moderate colonic stool burden in the right hemicolon predominantly. Nonobstructive bowel gas pattern. Independent Historian Clinical information obtained from an independent historian. History obtained from or confirmed by: Spouse External Record Review External record reviewed: Inpatient record, Office record and Outpatient record Prescription Management I considered prescription management with: Other (Golytely) Chronic Conditions Patient?s care impacted by: Other (CIC) Discharge Plan Discharge Clinical Impression: Constipation Patient Disposition: Home, Self-Care Instructions: Constipation (DC) Additional Instructions: Please call Dr. Roberson's office in the morning to advise that you were evaluated in the ED for your symptoms and were prescribed Golytely for your symptoms. Return to the emergency department if you develop worsening pain, fever 100.4F or greater, persistent vomiting, or are unable to tolerate fluids by mouth, or any other concerning symptoms. Prescriptions: New peg 3350-electrolytes [GaviLyte-G] 236-22.74-6.74 -5.86 gram recon soln 240 ml PO Q10M Qty: 4000 0RF Rx Instructions: until fecal effluent is clear No Action albuterol sulfate 90 mcg/actuation HFA aerosol inhaler 1 inh inhalation QID PRN (Reason: shortness of breath or wheezing) Qty: 8.5 0RF albuterol sulfate 90 mcg/actuation HFA aerosol inhaler 2 puff inhalation sertraline [Zoloft] 25 mg tablet 25 mg PO DAILY magnesium citrate Solution 300 ml PO .twice weekly PRN nicotine (polacrilex) 4 mg gum 4 mg buccal Q2H Linzess 145 mcg capsule 145 mcg PO QAM Qty: 30 3RF Referrals: [facility] [place] [facility] [Provider Group]
[2023-04-15 19:53] LABS: MANUAL DIFF FLAG NO
[2023-04-15 19:54] LABS: Basophils Percent Auto 0.5 % (0-2); Eosinophils Absolute Auto 0.2 X10*3/uL (0.0-0.4); Eosinophils Percent Auto 2.6 % (0-4); Hematocrit 35.1 % (37.0-47.0); Hemoglobin 11.7 g/dl (12.0-16.0); Imm Gran Abs Auto 0.01 X10*3/uL (0.00-0.03); Imm Gran Pct Auto 0.2 % (0.0-0.4); Lymphocytes Absolute Auto 2.5 X10*3/uL (1.2-4.9); Lymphocytes Percent Auto 44.4 % (20-40); Mean Corpuscular HGB Conc 33.3 g/dl (31.0-35.0); Mean Corpuscular Volume 98.9 fL (80.0-98.0); Monocytes Absolute Auto 0.4 X10*3/uL (0.1-1.2); Monocytes Percent Auto 6.8 % (2-11); Neutrophils Absolute Auto 2.6 x10*3/uL (2.0-8.3); Neutrophils Percent Auto 45.5 % (45-73); Platelet Count 252 X10*3/uL (160-400); Red Blood Count 3.55 X10*6/uL (4.20-5.50); White Blood Count 5.7 X10*3/uL (4.8-10.8)
[2023-04-15 20:11] LABS: Alanine Aminotransferase 13 U/L (0-31); Alkaline Phosphatase 40 U/L (39-117); Anion Gap 10 (12-20); Aspartate Amino Transferase 13 U/L (5-31); Bilirubin Direct 0.6 mg/dL (0.0-0.5); Bilirubin Total 2.1 mg/dL (0.0-1.0); Blood Urea Nitrogen 13 mg/dL (9-16); Carbon Dioxide 28 mmol/L (22-29); Chloride 107 mmol/L (96-108); Creatinine Clr Calc Pharmacy 99.2; Estimated Glomerular Filt Rate > 60; Glucose Random 93 mg/dL (60-115); Lipase 23 U/L (8-78); Magnesium 1.9 mg/dL (1.6-2.6); Potassium 3.9 mmol/L (3.3-5.1); Sodium 141 mmol/L (135-145); Total Protein 6.6 g/dL (6.5-8.0)
--- NOTE | 2023-04-15 22:46 | PC.NURSE ---
Lilia by , cleared for dc home with f/u with GI.
== END 2023-04-15 22:48 | disposition home or self-care (01) ==
PROVIDERS: Physician Assistant; Emergency Provider Emergency Medicine Emergency Medical Services
DX: K59.00 Constipation, unspecified (principal); R10.9 Unspecified abdominal pain; Z79.899 Other long term (current) drug therapy
CPT/HCPCS: 36415; 74018; 80048; 80076; 83690; 83735; 85025; 99283

== ENCOUNTER → 2023-04-25 12:30 | Outpatient (BNVA) | payer BC, OTHER, SELFPAY | PROVIDERS: PCP Internal Medicine; Visit Provider Nurse Practitioner ==

== ENCOUNTER 2024-05-23 11:46 | Emergency (ER) | payer BC, MEDICAID, SELFPAY ==
--- NOTE | ~2024-05-23 | US_ITS ---
EXAMINATION: US PELVIS CLINICAL INFORMATION: Pelvic pain. Hysterectomy. COMPARISON: CT abdomen/pelvis 05/23/2024. TECHNIQUE: Ultrasound of the pelvis is performed using both transabdominal and transvaginal transducers along with Doppler. Transvaginal imaging is performed due to inadequate visualization transabdominally. FINDINGS: Hysterectomy. Ovaries are normal in morphology with preserved flow on color and spectral Doppler at the moment of this examination. The right ovary measures 2.2 x 1.3 x 1.8 cm (2.7 mL). The left ovary measures 2 x 2.1 x 1.4 cm (3.1 mL). No discrete adnexal mass. No free fluid. US/US pelvic ovarian doppler IMPRESSION: No acute sonographic abnormalities to explain the patient's symptoms.
--- NOTE | ~2024-05-23 | CT_ITS ---
EXAMINATION: CT ABDOMEN AND PELVIS WITHOUT CONTRAST CLINICAL INFORMATION: Left lower quadrant pain. COMPARISON: Abdomen ultrasound from 06/24/2016 TECHNIQUE: Multidetector volumetric imaging was performed from the superior aspect of the liver through the pubic symphysis. Sagittal and coronal reformatted images were obtained on the technologist's workstation. This CT examination was performed using dose optimization techniques as appropriate, variously including the following: *Automated exposure control *Adjustment of mA and/or kV according to patient size (this includes techniques or standardized protocols for targeted exams where dose is matched to indication/reason for exam; i.e. extremities or head) *Use of iterative reconstruction technique DLP: 427 mGy-cm FINDINGS: LUNG BASES: No pulmonary consolidation or pleural effusion. HEPATOBILIARY: Liver has normal size, shape, and attenuation. Gallbladder has a normal appearance. No dilated bile ducts. PANCREAS: No edema, pancreatic ductal dilatation or mass. SPLEEN: Normal. ADRENAL GLANDS: Normal. KIDNEYS AND URETERS: Kidneys have normal size and cortical thickness. No perinephric edema, urolithiasis or hydroureteronephrosis. BLADDER: Not optimally evaluated due to lack of distention. There appears to be mild diffuse thickening of the bladder wall. BOWEL AND PERITONEUM: Stomach and small bowel are unremarkable. No dilated loops. The appendix is normal. No overt colonic wall thickening or mesenteric fat stranding. No free fluid or pneumoperitoneum. ABDOMINAL WALL: No significant findings. Minimal protrusion of fat into the umbilicus. VASCULATURE: Unremarkable. LYMPH NODES: No pathologic sized lymph nodes in the abdomen or pelvis. No inguinal lymphadenopathy. PELVIC VISCERA: No pelvic mass or pelvic free fluid. MUSCULOSKELETAL: Unremarkable. CT/CT abdomen pelvis wo IV con IMPRESSION: * No evidence of nephrolithiasis, hydronephrosis or perinephric edema. * Urinary bladder is underdistended. There is borderline diffuse wall thickening of the bladder. If deemed clinically appropriate, obtain correlation with urine culture and/or urinalysis to ensure absence of any lower urinary tract infection.
--- NOTE | ~2024-05-23 | US_ITS ---
EXAMINATION: US PELVIS CLINICAL INFORMATION: Pelvic pain. Hysterectomy. COMPARISON: CT abdomen/pelvis 05/23/2024. TECHNIQUE: Ultrasound of the pelvis is performed using both transabdominal and transvaginal transducers along with Doppler. Transvaginal imaging is performed due to inadequate visualization transabdominally. FINDINGS: Hysterectomy. Ovaries are normal in morphology with preserved flow on color and spectral Doppler at the moment of this examination. The right ovary measures 2.2 x 1.3 x 1.8 cm (2.7 mL). The left ovary measures 2 x 2.1 x 1.4 cm (3.1 mL). No discrete adnexal mass. No free fluid. US/US pelvic and transvaginal IMPRESSION: No acute sonographic abnormalities to explain the patient's symptoms.
[2024-05-23 11:53] VITALS: BP 115/76; PULSE 64; RESP 16; TEMP 36.9; O2SAT 96; BMI 23.6
--- NOTE | 2024-05-23 12:15 | ED.ABDPAIN ---
HPI - Abdominal Pain General Chief Complaint: Abdominal Pain Stated Complaint: abdominal pain Time Seen by Provider: 05/23/24 12:05 Source: patient Mode of arrival: ambulatory Limitations: no limitations History of Present Illness ED Provider: DR. Tovar HPI narrative: 38-year-old female came in for evaluation of of abdominal pain that started about 1 hour ago while she was at work, patient stated that after the pain started felt that her abdomen is bloated and unable to button her pains. Pain is localized to the left lower quadrant area that is started 1 hour ago as a sudden onset of pain, pain is easing up but still present is about 5/10, no fever, no chills. Able to pass flatus. Patient has chronic GI issue with chronic constipation that require laxative twice a week in order for her to have bowel movement. last bowel movement was 2 days ago. history of hysterectomy. Related Data Home Medications ?Medication ?Instructions ?Recorded ?Confirmed albuterol sulfate 90 mcg/actuation 2 puff inhalation 04/04/23 aerosol inhaler magnesium citrate 300 ml PO .twice weekly PRN 04/04/23 nicotine (polacrilex) 4 mg gum 4 mg buccal Q2H 04/04/23 sertraline 25 mg tablet (Zoloft) 25 mg PO DAILY 04/04/23 docusate sodium 50 mg capsule 50 mg PO BID 04/25/23 psyllium husk 0.4 gram capsule 0.4 g PO TID 04/25/23 (Daily Fiber) Previous Rx's ?Medication ?Instructions ?Recorded albuterol sulfate 90 mcg/actuation 1 inh inhalation QID PRN shortness 11/16/21 aerosol inhaler of breath or wheezing #8.5 grams bisacodyl 5 mg tablet,delayed 10 mg (2 x 5 mg) PO BEDTIME 30 04/25/23 release (Dulcolax (bisacodyl)) days #60 tabs linaclotide 290 mcg capsule 290 mcg PO QAM 30 days #30 caps 04/25/23 (Linzess) metoclopramide HCl 10 mg tablet 10 mg PO .tidac #90 tabs 04/25/23 (Reglan) peg 3350-electrolytes 236 240 ml PO Q10M 1 day #4,000 mL 04/25/23 gram-22.74 gram-6.74 gram-5.86 gram solution (Golytely) Allergies Allergy/AdvReac Type Severity Reaction Status Date / Time ciprofloxacin [CIPROFLOXACIN] Allergy Unknown HIVES/THROAT Verified 05/23/24 11:56 CLOSES gluten Allergy Unknown Verified 05/23/24 11:56 levofloxacin [From Levaquin] Allergy Rash Verified 05/23/24 11:56 shellfish derived Allergy Unknown Verified 05/23/24 11:56 soy Allergy Unknown Verified 05/23/24 11:56 sulfamethoxazole Allergy Hives Verified 05/23/24 11:56 [From Bactrim] trimethoprim [From Bactrim] Allergy Hives Verified 05/23/24 11:56 nuts Allergy Severe unknown Uncoded 05/23/24 11:56 Review of Systems Review of Systems all other systems are reviewed and are negative Constitutional: Reports as per HPI and Reports no additional constitutional complaints Eyes: Reports as per HPI and Reports no additional eye complaints Reports system reviewed and no additional complaints, except as documented Cardiovascular: Reports as per HPI and Reports no additional cardiovascular complaints Respiratory: Reports as per HPI and Reports no additional respiratory complaints Gastrointestinal: Reports as per HPI and Reports no additional gastrointestinal complaints Genitourinary: Reports no additional female genitourinary complaints Musculoskeletal: Reports no additional musculoskeletal complaints Skin/Breast: Reports system reviewed and no additional complaints, except as docu Psychiatric: Reports no additional psychiatric complaints Endocrine: Reports no additional endocrine complaints Hematologic/Lymphatic: Reports no additional hematologic/lymphatic complaints Allergic/Immunologic: Reports no additional allergic/immunologic complaints Reports system reviewed and no additional complaints, except as documented and Reports Abnormal speech present [facility] Past Medical History Medical History Bilateral inguinal hernia Surgical History H/O esophagogastroduodenoscopy H/O bilateral inguinal hernia repair Status post creation of urethral sling by suprapubic approach H/O hand surgery S/P tubal ligation Family History Family History Mother Diverticulitis Maternal Grandfather Colon cancer Paternal Grandfather Cirrhosis Social History Social History Alcohol intake: unknown Patient Tobacco Use Status: Current everyday Tobacco user Advance Directives: No Advance Directives Information Provided: No Physical Exam ED Vital Signs: Vital Signs - 24 hr 05/23/24 11:53 05/23/24 14:52 Temperature 98.5 F 97.7 F Pulse Rate 64 65 Respiratory Rate 16 18 Blood Pressure 115/76 107/65 Pulse Oximetry 96 98 Oxygen Delivery Method Room Air Room Air BMI result Body Mass Index 23.6 Vital signs have been reviewed and appear to be correct. Blood pressure elevated. Heart rate normal. Respiratory rate normal. Temperature normal. Oxygen saturation normal. Appearance: Alert. Oriented X3. No acute distress. Head: Normal external exam. Normocephalic. Atraumatic. No Gonzalez signs noted. No raccoon eyes noted Eyes: PERRLA. EOMI. Conjunctiva and sclera normal. Eyelids normal. ENT: TM's Normal. Pharynx normal. Uvula midline. Moist mucous membranes. No trismus noted. No drooling noted. No muffled voice noted. Neck: Normal inspection. Neck supple. FROM. No adenopathy. Thyroid Normal. No meningeal signs. No neck mass noted. CVS: Normal heart rate and rhythm. Heart sound normal. No murmurs noted. Pulses normal throughout. Respiratory: No respiratory distress. Painless inspiration. Breath sounds normal. No wheezes/rales/rhonchi noted. Chest nontender. No accessory muscle usage noted or decreased air movement noted. Abdomen: left lower quadrant tenderness, no guarding, no rebound tenderness, normal bowel sounds. Back: No CVA tenderness. Full range of motion noted. Skin: Skin warm and dry. Normal skin color. Normal skin turgor. No rashes/lesions/lacerations noted. Extremities: No lower extremity edema. Extremities exhibit normal range of motion. Extremities nontender. Neuro: Oriented X 3. Cranial nerve exam: II-XII are grossly intact No motor deficit. No sensory deficit. Reflexes normal. Course Reevaluation(s) Reevaluation #1: Came in for abdominal pain and abdominal distension, CT/pelvic ultrasound shows no acute abnormality, labs are also unremarkable, patient feels better with slight abdominal pain but no nausea, no vomiting. Patient was instructed to drink plenty fluids and follow-up with her PCP. Time: 15:32 Medical Decision Making Differential Diagnosis Differential Diagnoses: The differential diagnosis associated with the presentation includes ( Colitis, diverticulitis, acute pancreatitis, acute cholecystitis, small-bowel obstruction, UTI.) Admission/Observation Consideration of admission/observation: Escalation of care including admission/observation considered Lab Data MDM Lab Attestation statement: I reviewed the patient's lab results. 05/23/24 12:31 05/23/24 12:31 Labs: Lab Results 05/23/24 05/23/24 Range/Units 12:31 12:37 WBC 6.0 (4.8-10.8) X10*3/uL RBC 3.64 L (4.20-5.50) X10*6/uL Hgb 11.8 L (12.0-16.0) g/dl Hct 35.5 L (37.0-47.0) % MCV 97.5 (80.0-98.0) fL MCH 32.4 (27.0-33.0) pg MCHC 33.2 (31.0-35.0) g/dl RDW 12.6 (11.0-16.0) % Plt Count 265 (160-400) X10*3/uL MPV 9.8 (9.4-12.3) fL Immature Gran % (Auto) 0.2 (0.0-0.4) % Neut % (Auto) 66.1 (45-73) % Lymph % (Auto) 26.9 (20-40) % [place] % (Auto) 4.5 (2-11) % Eos % (Auto) 1.8 (0-4) % Baso % (Auto) 0.5 (0-2) % Lymph # (Auto) 1.6 (1.2-4.9) X10*3/uL [place] # (Auto) 0.3 (0.1-1.2) X10*3/uL Eos # (Auto) 0.1 (0.0-0.4) X10*3/uL Baso # (Auto) 0.0 (0.0-0.2) X10*3/uL Abs Immat Gran (auto) 0.01 (0.00-0.03) X10*3/uL Absolute Neuts (auto) 4.0 (2.0-8.3) x10*3/uL Absolute Nucleated RBC 0.000 (0.0-0.012) X10*3/uL Nucleated RBC % (auto) 0.0 (0.0-0.2) /100WBC Sodium 140 (135-145) mmol/L Potassium 3.7 (3.3-5.1) mmol/L Chloride 108 (96-108) mmol/L Carbon Dioxide 20 L (22-29) mmol/L Anion Gap 16 (12-20) BUN 11 (9-16) mg/dL Creatinine 0.69 (0.5-1.4) mg/dL Estim Creat Clear Calc 105.3 Estimated GFR > 60 Random Glucose 90 (60-115) mg/dL Calcium 8.4 D (8.4-10.2) mg/dL Total Bilirubin 1.0 (0.0-1.0) mg/dL AST 15 (5-31) U/L ALT 14 (0-31) U/L Alkaline Phosphatase 42 (39-117) U/L Total Protein 6.4 L (6.5-8.0) g/dL Albumin 3.9 (3.5-5.0) g/dL Lipase 21 (8-78) U/L Urine Color Yellow Urine Appearance Clear Urine pH 6.0 (5.0-9.0) Ur Specific [place] 1.015 (1.005-1.025) Urine Protein Negative (Neg-Trace) mg/dL Urine Glucose (UA) Negative (Negative) mg/dL Urine Ketones Negative (Negative) mg/dL Urine Blood Negative (Negative) Urine Nitrite Negative (Negative) Ur Leukocyte Esterase Negative (Negative) Urine Test NEGATIVE (NEGATIVE) Independent Interpretation I performed an independent interpretation of an: Ultrasound ( Pelvis: No acute sonographic abnormalities to explain the patient's symptoms. ) and CT Scan ( Abdomen pelvis:IMPRESSION: * No evidence of nephrolithiasis, hydronephrosis or perinephric edema. * Urinary bladder is underdistended. There is borderline diffuse wall thickening of the bladder. If deemed clinically appropriate, obtain correlation with urine culture and/or urinalysis to ensure ) Radiology Impression Discussion of test interpretation with radiology: I have reviewed the radiologist's reading. Discharge Plan Discharge Clinical Impression: Abdominal pain Patient Disposition: Home, Self-Care Instructions: Abdominal Pain (ED) Prescriptions: No Action albuterol sulfate 90 mcg/actuation HFA aerosol inhaler 1 inh inhalation QID PRN (Reason: shortness of breath or wheezing) Qty: 8.5 0RF albuterol sulfate 90 mcg/actuation HFA aerosol inhaler 2 puff inhalation sertraline [Zoloft] 25 mg tablet 25 mg PO DAILY magnesium citrate Solution 300 ml PO .twice weekly PRN nicotine (polacrilex) 4 mg gum 4 mg buccal Q2H docusate sodium 50 mg capsule 50 mg PO BID psyllium husk [Daily Fiber] 0.4 gram capsule 0.4 g PO TID Linzess 290 mcg capsule 290 mcg PO QAM 30 Days Qty: 30 3RF peg 3350-electrolytes [Golytely] 236-22.74-6.74 -5.86 gram recon soln 240 ml PO Q10M 1 Days Qty: 4000 0RF Rx Instructions: until fecal effluent is clear; do not exceed a total volume of 2,000 mL bisacodyl [Dulcolax (bisacodyl)] 5 mg tablet,delayed release (DR/EC) 10 mg PO BEDTIME 30 Days Qty: 60 3RF metoclopramide HCl [Reglan] 10 mg tablet 10 mg PO .tidac Qty: 90 3RF Rx Instructions: provider aware of possible interaction with zoloft and is monitoring. Referrals: Jennifer Soto MD [Primary Care Provider] - Print Language: Eritrean
[2024-05-23 12:37] LABS: MANUAL DIFF FLAG NO
--- NOTE | 2024-05-23 12:40 | PC.NURSE ---
a&ox4. vss and up to date. pt presents to the ED w/ sudden onset nonradiating LLQ abd pain. pt rating pain a 3/10 but intermittently goes to an 8/10. pt reports abd distention. distention noted. slightly tender w/ palpation. denies and nausea/vomiting/diarrhea. reports feeling dizzy/lightheaded when the pain increases. urine obtained/sent to lab. pt waiting for CT/US to be completed at this time. resting in no apparent distress. no sob/wob noted. respirations even/unlabored. plan of care ongoing. call muller placed within reach.
[2024-05-23 12:53] LABS: Basophils Percent Auto 0.5 % (0-2); Eosinophils Absolute Auto 0.1 X10*3/uL (0.0-0.4); Eosinophils Percent Auto 1.8 % (0-4); Hematocrit 35.5 % (37.0-47.0); Hemoglobin 11.8 g/dl (12.0-16.0); Imm Gran Abs Auto 0.01 X10*3/uL (0.00-0.03); Imm Gran Pct Auto 0.2 % (0.0-0.4); Lymphocytes Absolute Auto 1.6 X10*3/uL (1.2-4.9); Lymphocytes Percent Auto 26.9 % (20-40); Mean Corpuscular HGB Conc 33.2 g/dl (31.0-35.0); Mean Corpuscular Hemoglobin 32.4 pg (27.0-33.0); Mean Corpuscular Volume 97.5 fL (80.0-98.0); Mean Platelet Volume 9.8 fL (9.4-12.3); Monocytes Absolute Auto 0.3 X10*3/uL (0.1-1.2); Monocytes Percent Auto 4.5 % (2-11); Neutrophils Percent Auto 66.1 % (45-73); Platelet Count 265 X10*3/uL (160-400); Red Blood Count 3.64 X10*6/uL (4.20-5.50); Red Cell Distribution Width 12.6 % (11.0-16.0)
[2024-05-23 12:57] LABS: Appearance Urine Clear; Color Urine Yellow; Glucose Urine UA Negative (Negative); Leukocyte Esterase Urine Negative (Negative); Nitrite Urine Negative (Negative); Specific Gravity - Urine 1.015 (1.005-1.025); Urine Blood Negative (Negative); Urine Ketones Negative (Negative); Urine Protein Negative (Neg-Trace)
[2024-05-23 12:57] LABS: Alanine Aminotransferase 14 U/L (0-31); Albumin Level 3.9 g/dL (3.5-5.0); Alkaline Phosphatase 42 U/L (39-117); Anion Gap 16 (12-20); Aspartate Amino Transferase 15 U/L (5-31); Blood Urea Nitrogen 11 mg/dL (9-16); Calcium 8.4 mg/dL (8.4-10.2); Carbon Dioxide 20 mmol/L (22-29); Chloride 108 mmol/L (96-108); Creatinine Clr Calc Pharmacy 105.3; Estimated Glomerular Filt Rate > 60; Glucose Random 90 mg/dL (60-115); Lipase 21 U/L (8-78); Potassium 3.7 mmol/L (3.3-5.1); Sodium 140 mmol/L (135-145); Total Protein 6.4 g/dL (6.5-8.0)
[2024-05-23 13:00] LABS: UPreg QC Valid YES; Urine Pregnancy NEGATIVE (NEGATIVE)
[2024-05-23 14:52] VITALS: BP 107/65; PULSE 65; RESP 18; TEMP 36.5; O2SAT 98
--- NOTE | 2024-05-23 14:53 | PC.NURSE ---
vss and up to date. pt verbalizing no change in pain. resting comfortably in no apparent distress. awaiting US results. no sob/wob noted. respirations even/unlabored. plan of care ongoing. call muller placed within reach.
[2024-05-23 16:10] VITALS: BP 107/65; PULSE 65; RESP 18; TEMP 36.5; O2SAT 98
== END 2024-05-23 16:11 | disposition home or self-care (01) ==
PROVIDERS: Emergency Provider Emergency Medicine; PCP Internal Medicine
DX: R10.32 Left lower quadrant pain (principal); K59.09 Other constipation; K55.9 Vascular disorder of intestine, unspecified; F17.210 Nicotine dependence, cigarettes, uncomplicated; Z90.710 Acquired absence of both cervix and uterus
CPT/HCPCS: 36415; 74176; 76830; 76856; 80053; 81003; 81025; 83690; 85025; 93975; 99283; 99284